=== PATIENT | male | born 1985 | race Caucasian/White ===

== ENCOUNTER 2017-07-06 10:36 | Inpatient (IN) | payer SELFPAY ==
[2017-07-06] VITALS (7 sets, daily range): BP systolic 103–135; BP diastolic 59–79; PULSE 41–95; RESP 16–26; TEMP 97.8–98.5; O2SAT 96–100
[~2017-07-06] VITALS: Ht 182.9 cm; Wt 96.8 kg
[2017-07-06] MEDS ORDERED: CEFEPIME INJ 2,000 MG in SODIUM CHLORIDE 0.9% INJ 100 ML IV STA (11:22)
[2017-07-06] MEDS ORDERED: VANCOMYCIN INJ 1,000 MG in SODIUM CHLOR 0.9% 250 ML INJ 250 ML IV STA (11:22)
--- NOTE | 2017-07-06 11:45 | PD ---
HPI Chief Complaint: Fever Time Seen by Provider: 11:43 Travel History International Travel<30 days: No Contact w/Intl Traveler<30days: No Traveled to known affect area: No History of Present Illness HPI 32-year-old male patient with history of IV drug use, endocarditis, presents to the ER today because he states that for the past 34 days he has been having fevers of up to 103, fatigue, and body aches. He denies any chest pains or shortness of breath, he denies any abdominal pains. He states that he is still using IV drugs and has been constipated for 5 days but has had no nausea, vomiting, or other issues. Modifying Factors: None Associated Signs & Symptoms: Fatigue, body aches, fevers Risk Factors: IV drug use and endocarditis history PFSH Past Medical History Medical History: Denies Significant Hx Cardiovascular Problems: Yes (HX of endocarditis) Diminished Hearing: No Tetanus Vaccination: < 5 Years Influenza Vaccination: No Past Surgical History Surgical History: No Previous Surgery Social History Alcohol Use: No Tobacco Use: Yes (1/2 ppd) Substance Use: Yes (heroin ) Allergies-Medications (Allergen,Severity, Reaction): Coded Allergies: penicillin G (Verified Allergy, Severe, 07/06/17) allergy codeine (Verified Allergy, Unknown, 07/06/17) Reported Meds & Prescriptions Reported Meds & Active Scripts Active No Active Prescriptions or Reported Medications Review of Systems Except as stated in HPI: all other systems reviewed are Neg Physical Exam Narrative GENERAL: Well-developed young white male patient currently in mild distress. Awake and oriented 3. SKIN: Focused skin assessment warm/dry. HEAD: Atraumatic. Normocephalic. EYES: Pupils equal and round. No scleral icterus. No injection or drainage. ENT: No nasal bleeding or discharge. Mucous membranes pink and moist. NECK: Trachea midline. No JVD. Supple. CARDIOVASCULAR: Regular rate and rhythm. No murmur appreciated. RESPIRATORY: No accessory muscle use. Clear to auscultation. Breath sounds equal bilaterally. GASTROINTESTINAL: Abdomen soft, non-tender, nondistended. Hepatic and splenic margins not palpable. MUSCULOSKELETAL: No obvious deformities. No clubbing. No cyanosis. No edema. NEUROLOGICAL: Awake and alert. No obvious cranial nerve deficits. Motor grossly within normal limits. Normal speech. PSYCHIATRIC: Appropriate mood and affect; insight and judgment normal. Data Data Last Documented VS Vital Signs Date Time Temp Pulse Resp B/P (MAP) Pulse Ox O2 Delivery O2 Flow Rate FiO2 07/06/17 12:01 98 Room Air 07/06/17 12:01 07/06/17 11:45 98.5 89 18 Orders Orders Complete Blood Count With Diff (07/06/17 11:22) Comprehensive Metabolic Panel (07/06/17 11:22) Lactic Acid Sepsis Protocol (07/06/17 11:22) Urinalysis - C+S If Indicated (07/06/17 11:22) Blood Culture (07/06/17 11:22) Chest, Single Ap (07/06/17 11:22) Blood Glucose (07/06/17 11:22) Ecg Monitoring (07/06/17 11:22) Iv Access Insert/Monitor (07/06/17 11:22) Oximetry (07/06/17 11:22) Oxygen Administration (07/06/17 11:22) Vancomycin Inj (Vancomycin Inj) (07/06/17 11:22) Cefepime Inj (Maxipime Inj) (07/06/17 11:22) Sodium Chlor 0.9% 1000 Ml Inj (Ns 1000 M (07/06/17 13:00) Labs Laboratory Tests Test 07/06/17 11:45 07/06/17 12:40 07/06/17 12:41 White Blood Count 13.8 TH/MM3 Red Blood Count 4.37 MIL/MM3 Hemoglobin 12.8 GM/DL Hematocrit 39.5 % Mean Corpuscular Volume 90.4 FL Mean Corpuscular Hemoglobin 29.2 PG Mean Corpuscular Hemoglobin Concent 32.3 % Red Cell Distribution Width 13.5 % Platelet Count 311 TH/MM3 Mean Platelet Volume 7.7 FL Neutrophils (%) (Auto) 86.2 % Lymphocytes (%) (Auto) 5.4 % Monocytes (%) (Auto) 5.6 % Eosinophils (%) (Auto) 0.0 % Basophils (%) (Auto) 2.8 % Neutrophils # (Auto) 11.9 TH/MM3 Lymphocytes # (Auto) 0.7 TH/MM3 Monocytes # (Auto) 0.8 TH/MM3 Eosinophils # (Auto) 0.0 TH/MM3 Basophils # (Auto) 0.4 TH/MM3 CBC Comment AUTO DIFF Differential Comment AUTO DIFF CONFIRMED Urine Collection Type CATH Urine Color YELLOW Urine Turbidity CLEAR Urine pH 7.5 Urine Specific [place] 1.014 Urine Protein NEG mg/dL Urine Glucose (UA) NEG mg/dL Urine Ketones NEG mg/dL Urine Occult Blood NEG Urine Nitrite NEG Urine Bilirubin NEG Urine Leukocyte Esterase NEG Urine Squamous Epithelial Cells 0-5 /hpf Microscopic Urinalysis Comment CULT NOT INDICATED Blood Urea Nitrogen 9 MG/DL Creatinine 1.20 MG/DL Random Glucose 105 MG/DL Total Protein 6.4 GM/DL Albumin 2.3 GM/DL Calcium Level 8.2 MG/DL Alkaline Phosphatase 99 U/L Aspartate Amino Transf (AST/SGOT) 17 U/L Alanine Aminotransferase (ALT/SGPT) 29 U/L Total Bilirubin 0.9 MG/DL Sodium Level 136 MEQ/L Potassium Level 3.7 MEQ/L Chloride Level 103 MEQ/L Carbon Dioxide Level 26.3 MEQ/L Anion Gap 7 MEQ/L Estimat Glomerular Filtration Rate 70 ML/MIN Lactic Acid Level 0.9 mmol/L MDM Medical Decision Making Medical Screen Exam Complete: Yes Emergency Medical Condition: Yes Medical Record Reviewed: Yes Interpretation(s) Laboratory Tests Test 07/06/17 11:45 07/06/17 12:40 07/06/17 12:41 White Blood Count 13.8 TH/MM3 (4.0-11.0) Red Blood Count 4.37 MIL/MM3 (4.50-5.90) Hemoglobin 12.8 GM/DL (13.0-17.0) Neutrophils (%) (Auto) 86.2 % (16.0-70.0) Lymphocytes (%) (Auto) 5.4 % (9.0-44.0) Basophils (%) (Auto) 2.8 % (0.0-2.0) Neutrophils # (Auto) 11.9 TH/MM3 (1.8-7.7) Lymphocytes # (Auto) 0.7 TH/MM3 (1.0-4.8) Basophils # (Auto) 0.4 TH/MM3 (0-0.2) Albumin 2.3 GM/DL (3.4-5.0) Calcium Level 8.2 MG/DL (8.5-10.1) Estimat Glomerular Filtration Rate 70 ML/MIN (>89) Differential Diagnosis Fevers, fatigue: Endocarditis versus sepsis versus pneumonia versus viral syndrome Narrative Course Chest x-ray did not show any obvious pneumonia. Lab work shows leukocytosis concerning for possible underlying endocarditis. IV antibiotics were initiated after cultures were drawn. No other source was identified. Patient is a current IV drug user. At this point, my plan would be to admit the patient for further treatment. Case is discussed with Dr. Kuhn for admission. Diagnosis Primary Impression: Fever Additional Impression: Endocarditis Admitting Information Admitting Physician Requests: Admit Scripts No Active Prescriptions or Reported Meds Rhys Moncada MD Jul 06, 2017 11:45
--- NOTE | 2017-07-06 11:54 | RADRPT ---
EXAM DATE/TIME: 07/06/2017 11:29 [facility] COMPARISON: CHEST SINGLE AP, October 08, 2016, 16:58. INDICATIONS : Fever and body aches x 8 days. MEDICAL HISTORY : None. SURGICAL HISTORY : None. ENCOUNTER: Initial ACUITY: 1 week PAIN SCORE: 6/10 LOCATION: chest FINDINGS: A single view of the chest demonstrates the lungs to be symmetrically aerated without evidence of mas s, infiltrate or effusion. The cardiomediastinal contours are unremarkable. Osseous structures are intact. CONCLUSION: No acute cardiopulmonary process. Juventino Morales MD on July 06, 2017 at 11:49 Board Certified Radiologist. This report was verified electronically.
[2017-07-06 12:09] LABS: BLOOD, URINE NEG (NEG); GLUCOSE,URINE NEG (NEG); KETONE, URINE NEG (NEG); NITRITE,URINE NEG (NEG); PH, URINE 7.5 (5.0-8.5)
[2017-07-06 12:10] LABS: METHOD OF COLLECTION CATH; URINE COLOR YELLOW (YELLW/STRAW)
[2017-07-06 12:11] LABS: AUTOMATED NEUTROPHIL # 11.9 TH/MM3 (1.8-7.7); BASOPHIL # 0.4 TH/MM3 (0-0.2); BASOPHIL % 2.8 % (0.0-2.0); HEMATOCRIT 39.5 % (39.0-51.0); LYMPH % 5.4 % (9.0-44.0); LYMPHOCYTE # 0.7 TH/MM3 (1.0-4.8); MEAN CELL VOLUME 90.4 FL (80.0-100.0); MEAN CORPUSCULAR HEMOGLOBIN 29.2 PG (27.0-34.0); MEAN CORPUSCULAR HGB CONC 32.3 % (32.0-36.0); MONO % 5.6 % (0.0-8.0); NEUT % 86.2 % (16.0-70.0); PLATELET COUNT 311 TH/MM3 (150-450); RED BLOOD COUNT 4.37 MIL/MM3 (4.50-5.90); RED CELL DISTRIBUTION WIDTH 13.5 % (11.6-17.2); WHITE BLOOD COUNT 13.8 TH/MM3 (4.0-11.0)
[2017-07-06 12:12] LABS: HEMO FLAGS AUTO DIFF
[2017-07-06 12:14] LABS: COMMENT (UR) CULT NOT INDICATED; CULTURE IF INDICATED CULT NOT INDICATED; SQUAMOUS EPITHELIAL CELL URINE 0-5 /hpf (0-5)
[2017-07-06 12:33] LABS: SCAN/DIFF AUTO DIFF CONFIRMED
[2017-07-06 12:54] LABS: CHLORIDE 103 MEQ/L (98-107); POTASSIUM 3.7 MEQ/L (3.5-5.1); SODIUM (NA) 136 MEQ/L (136-145)
[2017-07-06 12:58] LABS: ANION GAP 7 MEQ/L (5-15); BICARBONATE 26.3 MEQ/L (21.0-32.0); BLOOD UREA NITROGEN 9 MG/DL (7-18)
[2017-07-06] MEDS ORDERED: SODIUM CHLOR 0.9% 1000 ML INJ 1,000 ML IV ONE (13:00)
[2017-07-06 13:01] LABS: ALT (GPT) 29 U/L (12-78); AST (GOT) 17 U/L (15-37); GLOMERULAR FILTRATION RATE 70 ML/MIN (>89)
[2017-07-06 13:02] LABS: TOTAL BILIRUBIN ADULT 0.9 MG/DL (0.2-1.0)
[2017-07-06 13:04] LABS: ALKALINE PHOSPHATASE 99 U/L (45-117)
[2017-07-06] MEDS ORDERED: SODIUM CHLORIDE 0.9% FLUSH 10 ML FLUSH IV FLUSH PRN (13:45)
[2017-07-06] MEDS ORDERED: MAGNESIUM HYDROXIDE SUSP 30 ML CUP PO PRN (13:45)
[2017-07-06] MEDS ORDERED: Vancomycin Consult Pharmacy 1 EA OTHER SCH (13:45)
[2017-07-06] MEDS ORDERED: ACETAMINOPHEN 325 MG TAB PO PRN (13:45)
[2017-07-06] MEDS ORDERED: LACTULOSE SYRUP 20 GM/30 ML CUP PO PRN (13:45)
[2017-07-06] MEDS ORDERED: NALOXONE HCL 0.4 MG/ML AMP IV PRN (13:45)
[2017-07-06] MEDS ORDERED: BISACODYL 10 MG SUPP RECTAL PRN (13:45)
[2017-07-06] MEDS ORDERED: SENNOSIDES 8.6 MG TAB PO PRN (13:45)
[2017-07-06] MEDS ORDERED: METHADONE HCL 10 MG TAB PO ONE ×2 (14:00→15:45)
--- NOTE | 2017-07-06 14:09 | HHI.HP ---
[facility] Primary Care Physician No Primary Care Physician Admission Diagnosis fevers/possible endocarditis Diagnoses: (1) IVDU (intravenous drug user) (2) Fever Travel History International Travel<30 Days: No Contact w/Intl Traveler <30 Da: No Traveled to Known Affected Are: No History of Present Illness This is a pleasant 32 year-old male with past medical history of IV drug abuse and endocarditis several years ago who presents to the ER complaining of nightly fevers for the past 7 days, chills, constipation. The patient states that he has been using IV heroin and last used 2 days ago and feels he is going into withdrawal. He presented to the ER for evaluation of the fevers. He states that his body feels "toxic." He was constipated for about 4 or 5 days but several days ago used to enemas. Yesterday he had liquid stools which he believes is related to the withdrawal. The patient also had several episodes of vomiting, without hematemesis. The patient denies vision changes, rash, chest pain, shortness of breath. He is requesting being given something for the withdrawal. 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 He states he was on pain medication for chronic low back pain until he failed a drug test 2 years ago for marijuana and since then he has been using heroin. He had an episode of endocarditis several years ago in [place] and states he was hospitalized for several months with IV antibiotics. He did not require valve replacement. In the emergency department he was afebrile with normal vital signs however he did have a mild leukocytosis. ER physician due to blood cultures and gave him 1 g of vancomycin and 2 g of cefepime. He has been requested to be observed to rule out endocarditis. Review of Systems Constitutional: COMPLAINS OF: Fever, Chills Eyes: DENIES: Blurred vision, Diplopia Ears, nose, mouth, throat: DENIES: Throat pain, Hoarseness Respiratory: DENIES: Cough, Shortness of breath Cardiovascular: DENIES: Chest pain, Palpitations Gastrointestinal: COMPLAINS OF: Constipation, Diarrhea, Vomiting, DENIES: Abdominal pain Genitourinary: DENIES: Hematuria, Dysuria Musculoskeletal: COMPLAINS OF: Muscle aches (the patient endorses muscle spasms in his lower back), Back pain Integumentary: DENIES: Nail changes, Pruritus, Rash Hematologic/lymphatic: DENIES: Lymphadenopathy Neurologic: DENIES: Abnormal gait, Headache, Localized weakness Psychiatric: DENIES: Anxiety, Confusion Past Family Social History Past Medical History Chronic low back pain History of endocarditis and IV drug abuse Past Surgical History None Allergies: Coded Allergies: penicillin G (Verified Allergy, Severe, 07/06/17) allergy codeine (Verified Allergy, Unknown, 07/06/17) Family History Reviewed and noncontributory Social History He smokes cigarettes and occasional marijuana. Injects IV heroin. Denies other illicit drug use. Physical Exam Vital Signs Vital Signs Date Time Temp Pulse Resp B/P (MAP) Pulse Ox O2 Delivery O2 Flow Rate FiO2 07/06/17 12:01 98 Room Air 07/06/17 12:01 98 Room Air 07/06/17 11:51 99 Room Air 07/06/17 11:45 98.5 89 18 117/78 (91) 99 Room Air 07/06/17 10:43 98.5 95 16 120/70 (87) 96 Physical Exam GENERAL: Well-nourished, well-developed pleasant and polite young adult male patient. SKIN: Warm and dry. No rashes or infections noted. HEAD: Normocephalic. EYES: No scleral icterus. No injection or drainage. NECK: Supple, trachea midline. No JVD or lymphadenopathy. CARDIOVASCULAR: Regular rate and rhythm without murmurs, gallops, or rubs. RESPIRATORY: Breath sounds equal bilaterally. No accessory muscle use. GASTROINTESTINAL: Abdomen soft, non-tender, nondistended. EXTREMITIES: No cyanosis, or edema. He has an abrasion and small ecchymosis on the dorsum of his right hand. No splinter hemorrhages. NEUROLOGICAL: Awake, alert, and oriented x 3. Non-focal. Laboratory Laboratory Tests Test 07/06/17 11:45 07/06/17 12:40 07/06/17 12:41 White Blood Count 13.8 Red Blood Count 4.37 Hemoglobin 12.8 Hematocrit 39.5 Mean Corpuscular Volume 90.4 Mean Corpuscular Hemoglobin 29.2 Mean Corpuscular Hemoglobin Concent 32.3 Red Cell Distribution Width 13.5 Platelet Count 311 Mean Platelet Volume 7.7 Neutrophils (%) (Auto) 86.2 Lymphocytes (%) (Auto) 5.4 Monocytes (%) (Auto) 5.6 Eosinophils (%) (Auto) 0.0 Basophils (%) (Auto) 2.8 Neutrophils # (Auto) 11.9 Lymphocytes # (Auto) 0.7 Monocytes # (Auto) 0.8 Eosinophils # (Auto) 0.0 Basophils # (Auto) 0.4 CBC Comment AUTO DIFF Differential Comment AUTO DIFF CONFIRMED Urine Collection Type CATH Urine Color YELLOW Urine Turbidity CLEAR Urine pH 7.5 Urine Specific [place] 1.014 Urine Protein NEG Urine Glucose (UA) NEG Urine Ketones NEG Urine Occult Blood NEG Urine Nitrite NEG Urine Bilirubin NEG Urine Leukocyte Esterase NEG Urine Squamous Epithelial Cells 0-5 Microscopic Urinalysis Comment CULT NOT INDICATED Blood Urea Nitrogen 9 Creatinine 1.20 Random Glucose 105 Total Protein 6.4 Albumin 2.3 Calcium Level 8.2 Alkaline Phosphatase 99 Aspartate Amino Transf (AST/SGOT) 17 Alanine Aminotransferase (ALT/SGPT) 29 Total Bilirubin 0.9 Sodium Level 136 Potassium Level 3.7 Chloride Level 103 Carbon Dioxide Level 26.3 Anion Gap 7 Estimat Glomerular Filtration Rate 70 Lactic Acid Level 0.9 Date/Time Source Procedure Growth Status 07/06/17 12:15 Blood Peripheral Aerobic Blood Culture Pending Received 07/06/17 12:15 Blood Peripheral Anaerobic Blood Culture Pending Received Result Diagram: 07/06/17 1145 07/06/17 1240 Caprini VTE Risk Assessment Caprini VTE Risk Assessment: No/Low Risk (score <= 1) Caprini Risk Assessment Model Point Value = 1 Point Value = 2 Point Value = 3 Point Value = 5 Age 41-60 Minor surgery BMI > 25 kg/m2 Swollen legs Varicose veins or History of unexplained or recurrent spontaneous Oral contraceptives or hormone replacement Sepsis (< 1 month) Serious lung disease, including pneumonia (< 1 month) Abnormal pulmonary function Acute myocardial infarction Congestive heart failure (< 1 month) History of inflammatory bowel disease Medical patient at bed rest Age 61-74 Arthroscopic surgery Major open surgery (> 45 min) Laparoscopic surgery (> 45 min) Malignancy Confined to bed (> 72 hours) Immobilizing plaster cast Central venous access Age >= 75 History of VTE Family history of VTE Factor V Leiden Prothrombin [id number] Lupus anticoagulant Anticardiolipin antibodies Elevated serum homocysteine Heparin-induced thrombocytopenia Other congenital or acquired thrombophilia Stroke (< 1 month) Elective arthroplasty Hip, pelvis, or leg fracture Acute spinal cord injury (< 1 month) Prophylaxis Regimen Total Risk Factor Score Risk Level Prophylaxis Regimen 0-1 Low Early ambulation 2 Moderate Order ONE of the following: *Sequential Compression Device (SCD) *Heparin 5000 units SQ BID 3-4 Higher Order ONE of the following medications: *Heparin 5000 units SQ TID *Enoxaparin/Lovenox 40 mg SQ daily (WT < 150 kg, CrCl > 30 mL/min) *Enoxaparin/Lovenox 30 mg SQ daily (WT < 150 kg, CrCl > 10-29 mL/min) *Enoxaparin/Lovenox 30 mg SQ BID (WT < 150 kg, CrCl > 30 mL/min) AND/OR *Sequential Compression Device (SCD) 5 or more Highest Order ONE of the following medications: *Heparin 5000 units SQ TID (Preferred with Epidurals) *Enoxaparin/Lovenox 40 mg SQ daily (WT < 150 kg, CrCl > 30 mL/min) *Enoxaparin/Lovenox 30 mg SQ daily (WT < 150 kg, CrCl > 10-29 mL/min) *Enoxaparin/Lovenox 30 mg SQ BID (WT < 150 kg, CrCl > 30 mL/min) AND *Sequential Compression Device (SCD) Assessment and Plan Assessment and Plan 30 year-old male -Subjective fevers, leukocytosis reported in a patient with history of IV drug abuse. We'll place in observation with broad-spectrum IV antibiotics vancomycin and Azactam while we rule out endocarditis with blood cultures. -IV heroin abuse with withdrawal. Will give methadone 10 mg 1. -Chronic low back pain Will use Lortab 5 mg as needed for pain. -Constipation, resolved as per history but will place on bowel regimen. -DVT prophylaxis with SCDs Eden Kuhn MD Jul 06, 2017 14:09
[2017-07-06] MEDS: AZTREONAM INJ 2,000 MG in SODIUM CHLORIDE 0.9% INJ 100 ML IV SCH ×2 (16:49→23:33)
[2017-07-06] MEDS: SODIUM CHLOR 0.9% 1000 ML INJ 1,000 ML IV SCH ×2 (16:56→23:15)
[2017-07-06] MEDS: VANCOMYCIN INJ 1,400 MG in SODIUM CHLORID 0.9% 500 ML INJ 500 ML IV SCH (17:36)
[2017-07-06] MEDS: DOCUSATE SODIUM 50 MG/SENNA 8.6 MG TAB PO SCH (20:26)
[2017-07-06] MEDS: ACETAMINOPHEN/HYDROcodone 325 MG/5 MG TAB PO PRN (20:27)
[2017-07-06] MEDS: SODIUM CHLORIDE 0.9% FLUSH 10 ML FLUSH IV FLUSH SCH (20:48)
[2017-07-06] MEDS ORDERED: LORazepam 0.5 MG TAB PO ONE (22:45)
[2017-07-07] VITALS: BP 100/54; PULSE 109; RESP 18; TEMP 98.3; O2SAT 100
[2017-07-07] MEDS: ACETAMINOPHEN/HYDROcodone 325 MG/5 MG TAB PO PRN ×5 (05:58→23:55)
[2017-07-07] MEDS: VANCOMYCIN INJ 1,400 MG in SODIUM CHLORID 0.9% 500 ML INJ 500 ML IV SCH (05:58)
[2017-07-07 08:00] VITALS: BP 119/78; PULSE 88; RESP 16; TEMP 97.6; O2SAT 100
[2017-07-07] MEDS: DOCUSATE SODIUM 50 MG/SENNA 8.6 MG TAB PO SCH ×2 (09:00→20:56)
[2017-07-07] MEDS: SODIUM CHLORIDE 0.9% FLUSH 10 ML FLUSH IV FLUSH SCH ×2 (09:04→20:57)
[2017-07-07] MEDS: AZTREONAM INJ 2,000 MG in SODIUM CHLORIDE 0.9% INJ 100 ML IV SCH ×3 (09:12→23:55)
[2017-07-07] MEDS: SODIUM CHLOR 0.9% 1000 ML INJ 1,000 ML IV SCH ×2 (09:37→16:02)
[2017-07-07 12:00] VITALS: BP 117/70; PULSE 84; RESP 16; TEMP 97.8; O2SAT 100
[2017-07-07] MEDS: VANCOMYCIN INJ 1,250 MG in SODIUM CHLOR 0.9% 250 ML INJ 250 ML IV SCH ×2 (15:15→20:57)
[2017-07-07] MEDS: GABAPENTIN 300 MG CAP PO SCH ×2 (15:16→20:56)
[2017-07-07 18:00] VITALS: BP 109/67; PULSE 67; RESP 16; TEMP 96.7; O2SAT 100
[2017-07-07 20:00] VITALS: BP 130/75; PULSE 81; RESP 16; TEMP 97.6; O2SAT 100
[2017-07-07] MEDS: REMOVE OLD PATCH T-DERMAL SCH (20:57)
[2017-07-07] MEDS: NICOTINE 21 MG/24 HR PATCH T-DERMAL SCH (20:57)
--- NOTE | 2017-07-07 23:46 | HHI.PR ---
Subjective Remarks Patient seen this morning. Requesting increase in narcotic pain medication for chronic back pain. Denies any chest pain or shortness of breath. Patient reports past history of endocarditis.. He reports recent IV drug use. Objective Vital Signs Date Time Temp Pulse Resp B/P (MAP) Pulse Ox O2 Delivery O2 Flow Rate FiO2 07/07/17 20:00 97.6 81 16 130/75 (93) 100 07/07/17 18:00 96.7 67 16 109/67 (81) 100 07/07/17 15:35 16 07/07/17 12:00 97.8 84 16 117/70 (86) 100 07/07/17 08:00 97.6 88 16 119/78 (92) 100 07/07/17 00:00 98.3 109 18 100/54 (69) 100 I/O 07/07/17 07/07/17 07/07/17 07/08/17 07/08/17 07/08/17 07:00 15:00 23:00 07:00 15:00 23:00 Intake Total 938 ml 590 ml 1060 ml Output Total 400 ml Balance 938 ml 190 ml 1060 ml Intake Oral 240 ml 360 ml IV Total 938 ml 350 ml 700 ml Output Urine Total 400 ml # Voids 1 2 Result Diagram: 07/06/17 1145 07/07/17 0622 Objective Remarks GENERAL: patient sleeping, wakes up for exam. Appears comfortable. SKIN: Warm and dry. HEAD: Normocephalic. EYES: No scleral icterus. No injection or drainage. NECK: Supple, trachea midline. No JVD or lymphadenopathy. CARDIOVASCULAR: Regular rate and rhythm without murmurs, gallops, or rubs. RESPIRATORY: Breath sounds equal bilaterally. No accessory muscle use. GASTROINTESTINAL: Abdomen soft, non-tender, nondistended. MUSCULOSKELETAL: No cyanosis, or edema. BACK: Nontender without obvious deformity. No CVA tenderness. A/P Assessment and Plan ===07/07/17 //Suspected endocarditis. Order echocardiogram. Consult infectious disease for endocarditis. MRSA on [facility] labs. Repeat cultures. Continue vancomycin pending sensitivities. //MRSA endocarditis -Intermittent tachycardia, leukocytosis. Lactic acid 0.9. Subjective fevers at home. -Echocardiogram ordered. Consult infectious disease. Continue IV antibiotics. Follow-up infectious disease recommendations. //History of IV heroin abuse -No signs of acute withdrawal. Monitor. //Chronic low back pain. Continue Lortab 5 mg as needed for pain. //Constipation, resolved as per history. Continue on bowel regimen -DVT prophylaxis with SCDs Smith Salguero MD Jul 07, 2017 23:46
[2017-07-08] VITALS: BP 113/70; PULSE 83; RESP 16; TEMP 98.3; O2SAT 100
[2017-07-08] MEDS: SODIUM CHLOR 0.9% 1000 ML INJ 1,000 ML IV SCH ×2 (05:37→15:37)
[2017-07-08] MEDS: ACETAMINOPHEN/HYDROcodone 325 MG/5 MG TAB PO PRN ×3 (06:03→14:28)
[2017-07-08] MEDS: VANCOMYCIN INJ 1,250 MG in SODIUM CHLOR 0.9% 250 ML INJ 250 ML IV SCH ×2 (06:03→14:25)
[2017-07-08 08:00] VITALS: BP 112/73; PULSE 81; RESP 20; TEMP 97; O2SAT 95
--- NOTE | 2017-07-08 08:25 | PD.CONS ---
History of Present Illness Service Infectious Disease Consult Requested By Dr Racheal Kuhn Reason for Consult ? Endocarditis Primary Care Physician No Primary Care Physician Diagnoses: (1) MRSA (methicillin resistant Staphylococcus aureus) septicemia (2) IVDU (intravenous drug user) History of Present Illness 32 year old male patient with a h/o Endocarditis 2 years ago and a h/o IVDU - last use 2 days prior to admission came in with c/o fevers , weakness for about a week. Patient had leucocytosis and was admitted - Blood cultures 4 of 4 growing MRSA. Patient says he feels better today and wants to be discharged as he has to get to work. Denies shortness of breath and chest pain. C/o chronic back problems Echo is pending.. Review of Systems Constitutional: COMPLAINS OF: Fever, Chills Endocrine: DENIES: Polydipsia, Polyuria Eyes: DENIES: Blurred vision, Diplopia, Eye inflammation Ears, nose, mouth, throat: DENIES: Vertigo Respiratory: DENIES: Cough, Wheezing, Sputum production Cardiovascular: DENIES: Chest pain, Lower Extremity Edema Gastrointestinal: COMPLAINS OF: Diarrhea, DENIES: Abdominal pain, Vomiting Genitourinary: DENIES: Urinary incontinence, Dysuria Musculoskeletal: COMPLAINS OF: Back pain, DENIES: Joint Swelling Integumentary: DENIES: Abnormal pigmentation, Pruritus Hematologic/lymphatic: DENIES: Lymphadenopathy Neurologic: DENIES: Headache, Seizures Psychiatric: DENIES: Confusion, Hallucinations Past Family Social History Allergies: Coded Allergies: penicillin G (Verified Allergy, Severe, 07/06/17) allergy codeine (Verified Allergy, Unknown, 07/06/17) Past Medical History Endocarditis two years ago H/i IVDU Chronic back problems. Past Surgical History None Allergies: Coded Allergies: penicillin G (Verified Allergy, Severe, 07/06/17) allergy codeine (Verified Allergy, Unknown, 07/06/17) Family History Reviewed and noncontributory Social History He smokes cigarettes and occasional marijuana. Injects IV heroin. Denies other illicit drug use. Physical Exam Vital Signs Vital Signs Date Time Temp Pulse Resp B/P (MAP) Pulse Ox O2 Delivery O2 Flow Rate FiO2 07/08/17 00:00 98.3 83 16 113/70 (84) 100 07/07/17 20:00 97.6 81 16 130/75 (93) 100 07/07/17 18:00 96.7 67 16 109/67 (81) 100 07/07/17 15:35 16 07/07/17 12:00 97.8 84 16 117/70 (86) 100 Physical Exam GENERAL: This is a well-nourished, well-developed patient, in no apparent distress. SKIN: No rashes, ecchymoses or lesions. Cool and dry. HEAD: Atraumatic. Normocephalic. No temporal or scalp tenderness. EYES: Pupils equal round and reactive. Extraocular motions intact. No scleral icterus. No injection or drainage. ENT: Nose without bleeding, purulent drainage or septal hematoma. Throat without erythema, tonsillar hypertrophy or exudate. Uvula midline. Airway patent. NECK: Trachea midline. No JVD or lymphadenopathy. Supple, nontender, no meningeal signs. CARDIOVASCULAR: Regular rate and rhythm with a systolic murmurs, gallops, or rubs. RESPIRATORY: Clear to auscultation. Breath sounds equal bilaterally. No wheezes , rales, or rhonchi. GASTROINTESTINAL: Abdomen soft, non-tender, nondistended. No hepato-splenomegaly , or palpable masses. No guarding. MUSCULOSKELETAL: Extremities without clubbing, cyanosis, or edema. No joint tenderness, effusion, or edema noted. No calf tenderness. Negative Homans sign bilaterally. NEUROLOGICAL: Awake and alert. Cranial nerves II through XII intact. Motor and sensory grossly within normal limits. Five out of 5 muscle strength in all muscle groups. Normal speech. Laboratory Date/Time Source Procedure Growth Status 07/07/17 11:30 Blood Peripheral Aerobic Blood Culture Pending Received 07/07/17 11:30 Blood Peripheral Anaerobic Blood Culture Pending Received Result Diagram: 07/06/17 1145 07/07/17 0622 Assessment and Plan Problem List: (1) MRSA (methicillin resistant Staphylococcus aureus) septicemia ICD Codes: A41.02 - Sepsis due to Methicillin resistant Staphylococcus aureus Status: Acute Plan: Follow blood cultures Check Echocardiogram If Echo negative - he will need a ALFREDO Patient advised that his plan of treatment cannot be determined right now- it depends on clearing of bacteremia and if Echo/ ALFREDO shows a vegetation. He was advised he cannot be discharged today. Continue IV Vancomycin- pharmacy to dose Stop IV Aztreonam (2) IVDU (intravenous drug user) ICD Codes: F19.90 - Other psychoactive substance use, unspecified, uncomplicated Status: Chronic Rebeca Harden MD Jul 08, 2017 08:25
[2017-07-08] MEDS ORDERED: NICOTINE 21 MG/24 HR PATCH T-DERMAL SCH (09:00)
[2017-07-08] MEDS ORDERED: REMOVE OLD PATCH T-DERMAL SCH ×2 (09:00→21:00)
[2017-07-08] MEDS: DOCUSATE SODIUM 50 MG/SENNA 8.6 MG TAB PO SCH (09:09)
[2017-07-08] MEDS: GABAPENTIN 300 MG CAP PO SCH (09:09)
[2017-07-08] MEDS: REMOVE OLD PATCH T-DERMAL SCH (09:10)
[2017-07-08] MEDS: NICOTINE 21 MG/24 HR PATCH T-DERMAL SCH (09:10)
[2017-07-08] MEDS: SODIUM CHLORIDE 0.9% FLUSH 10 ML FLUSH IV FLUSH SCH (09:12)
[2017-07-08 09:53] LABS: AUTOMATED NEUTROPHIL # 5.7 TH/MM3 (1.8-7.7); BASOPHIL % 0.4 % (0.0-2.0); EOSINOPHIL # 0.1 TH/MM3 (0-0.4); EOSINOPHIL % 0.8 % (0.0-4.0); HEMATOCRIT 36.3 % (39.0-51.0); HEMO FLAGS DIFF FINAL; LYMPH % 13.1 % (9.0-44.0); LYMPHOCYTE # 0.9 TH/MM3 (1.0-4.8); MEAN CELL VOLUME 89.4 FL (80.0-100.0); MEAN CORPUSCULAR HEMOGLOBIN 29.6 PG (27.0-34.0); MEAN CORPUSCULAR HGB CONC 33.1 % (32.0-36.0); NEUT % 78.7 % (16.0-70.0); PLATELET COUNT 257 TH/MM3 (150-450); RED BLOOD COUNT 4.06 MIL/MM3 (4.50-5.90); RED CELL DISTRIBUTION WIDTH 11.9 % (11.6-17.2); WHITE BLOOD COUNT 7.2 TH/MM3 (4.0-11.0)
[2017-07-08 10:42] LABS: BICARBONATE 25.3 MEQ/L (21.0-32.0); POTASSIUM 4.7 MEQ/L (3.5-5.1)
[2017-07-08 12:00] VITALS: BP 129/77; PULSE 80; RESP 19; O2SAT 100
--- NOTE | 2017-07-08 12:46 | ECHRPT ---
Indication: Rheumatic diseases of endocardium, valve unspecified CONCLUSIONS Normal left ventricular size. Mild concentric left ventricular hypertrophy. Findings consistent with vegetation on the anterior leaflet of the tricuspid valve versus sclerosis due to rheumatic disease. clinical correlation recommended. There is severe tricuspid regurgitation. The estimated pulmonary arterial pressure is 46 mmHg. The pulmonary valve is not well visualized. Consider transesophageal echocardiogram. BP: 113 / 70 HR: 80 Rhythm: Sinus MEASUREMENTS (Male / Female) Normal Values Technical Quality:Good DOPPLER TR Peak Velocity 301.0 cm/s TR Peak Gradient 36.2 mmHg FINDINGS LEFT VENTRICLE Normal left ventricular size. Mild concentric left ventricular hypertrophy. The left ventricular systolic function is normal with an estimated ejection fraction in the range of 60-65%. RIGHT VENTRICLE Normal right ventricular size and systolic function. LEFT ATRIUM The left atrial size is normal. RIGHT ATRIUM The right atrial size is normal. ATRIAL SEPTUM Normal atrial septal thickness without atrial level shunting by limited color doppler interrogation. AORTA The aortic root and proximal ascending aorta are normal in size on limited imaging. MITRAL VALVE Structurally normal mitral valve. No mitral valve stenosis or regurgitation. AORTIC VALVE Trileaflet aortic valve. No aortic valve stenosis or regurgitation. TRICUSPID VALVE Findings consistent with vegetation on the anterior leaflet of the tricuspid valve. There is severe tricuspid regurgitation. The estimated pulmonary arterial pressure is 46 mmHg. PULMONARY VALVE The pulmonary valve is not well visualized. VESSELS The inferior vena cava is normal in size. PERICARDIUM No pericardial effusion. Carlos Huitron MD, FACC (Electronically Signed) Final Date:08 July 2017 12:45
[2017-07-08] MEDS ORDERED: PHARMACY ORDERED LAB ONE (13:45)
[2017-07-08 16:00] VITALS: BP 123/88; PULSE 87; RESP 18; TEMP 97.2; O2SAT 100
--- NOTE | 2017-07-08 18:52 | HHI.PR ---
Subjective Remarks Patient seen this morning around 11 AM. Sleeping, wakes up for exam. Requests increase in pain medication. Again, discussed with patient that endocarditis is potentially life-threatening. Patient conveys understanding. Objective Vital Signs Date Time Temp Pulse Resp B/P (MAP) Pulse Ox O2 Delivery O2 Flow Rate FiO2 07/08/17 16:00 97.2 87 18 123/88 (100) 100 07/08/17 12:00 80 19 129/77 (94) 100 07/08/17 08:00 97.0 81 20 112/73 (86) 95 07/08/17 00:00 98.3 83 16 113/70 (84) 100 07/07/17 20:00 97.6 81 16 130/75 (93) 100 I/O 07/07/17 07/07/17 07/07/17 07/08/17 07/08/17 07/08/17 07:00 15:00 23:00 07:00 15:00 23:00 Intake Total 938 ml 590 ml 1060 ml 480 ml 1560 ml Output Total 400 ml 1000 ml Balance 938 ml 190 ml 1060 ml -520 ml 1560 ml Intake Oral 240 ml 360 ml 480 ml 960 ml IV Total 938 ml 350 ml 700 ml 600 ml Output Urine Total 400 ml 1000 ml # Voids 1 2 4 # Bowel Movements 0 Result Diagram: 07/08/1792907/08/1730 Objective Remarks GENERAL: patient sleeping again, wakes up for exam. Appears comfortable.patient appears alert. SKIN: Warm and dry. HEAD: Normocephalic. EYES: No scleral icterus. No injection or drainage. NECK: Supple, trachea midline. No JVD. CARDIOVASCULAR: Regular rate and rhythm without murmurs, gallops, or rubs. RESPIRATORY: Breath sounds equal bilaterally. No accessory muscle use. GASTROINTESTINAL: Abdomen soft, non-tender, nondistended. MUSCULOSKELETAL: No cyanosis, or edema. BACK: Nontender without obvious deformity. No CVA tenderness. A/P Assessment and Plan ====07/08/17 -Echocardiogram reviewed with severe tricuspid regurgitation, vegetation. Continue IV antibiotics. Appreciate infectious disease assistance. //MRSA endocarditis -Intermittent tachycardia, leukocytosis. Lactic acid 0.9. Subjective fevers at home. -Echocardiogram ordered. Consult infectious disease. Continue IV antibiotics. Follow-up infectious disease recommendations. //History of IV heroin abuse -No signs of acute withdrawal. Monitor. //Chronic low back pain. Continue Lortab 5 mg as needed for pain. //Constipation, resolved as per history. Continue on bowel regimen -DVT prophylaxis with SCDs Discharge Planning plan to continue IV antibiotics as per infectious disease. Smith Salguero MD Jul 08, 2017 18:52
== END 2017-07-08 18:26 | disposition left against medical advice (07) | DRG 871 ==
LOC: PHED 10:36 → INTOOBSV 13:17 → PHEDA 13:17 → PH3A 15:20 → OBSVTOIN 07-07 17:13
PROVIDERS: ADMIT Internal Medicine; ATTEND Internal Medicine
DX: A41.02 Sepsis due to Methicillin resistant Staphylococcus aureus (principal); I33.0 Acute and subacute infective endocarditis; F17.210 Nicotine dependence, cigarettes, uncomplicated; G89.29 Other chronic pain; F11.10 Opioid abuse, uncomplicated; M54.5 Low back pain; B95.62 Methicillin resistant Staphylococcus aureus infection as the cause of diseases classified elsewhere
CPT/HCPCS: 71010; 80048; 80053; 80202; 81001; 82565; 83605; 85025; 86403; 87040; 87186; 87205; 93308; 96365; 96366; G0378; J0692; J3370; J7030; J7040; J7050

== ENCOUNTER 2017-07-31 08:23 | Inpatient (IN) | payer SELFPAY ==
[2017-07-31] VITALS (18 sets, daily range): BP systolic 82–132; BP diastolic 54–77; PULSE 86–133; RESP 16–20; TEMP 95.5–100.9; O2SAT 95–99
[~2017-07-31] VITALS: Ht 182.9 cm; Wt 85.3 kg
[2017-07-31] MEDS ORDERED: SODIUM CHLOR 0.9% 1000 ML INJ 700 ML IV ONE (08:34)
[2017-07-31] MEDS ORDERED: SODIUM CHLOR 0.9% 1000 ML INJ 1,000 ML IV ONE ×2 (08:34)
[2017-07-31] MEDS ORDERED: ONDANSETRON HCL 4 MG/2 ML VIAL IV ONE (08:45)
[2017-07-31] MEDS ORDERED: CLINDAMYCIN INJ 600 MG in SODIUM CHLORIDE 0.9% INJ 100 ML IV ONE (08:45)
[2017-07-31] MEDS ORDERED: HYDROmorphone HCL PF 1 MG/ML VIAL IV ONE (08:45)
[2017-07-31] MEDS ORDERED: VANCOMYCIN INJ 1,500 MG in SODIUM CHLORID 0.9% 500 ML INJ 500 ML IV ONE (08:45)
[2017-07-31] MEDS ORDERED: ACETAMINOPHEN 325 MG TAB PO ONE (08:45)
--- NOTE | 2017-07-31 08:53 | PD ---
HPI Chief Complaint: Fever Time Seen by Provider: 08:29 Travel History International Travel<30 days: No Contact w/Intl Traveler<30days: No Traveled to known affect area: No History of Present Illness HPI The patient is a 32-year-old male who presents to the emergency department for fever. The patient has a history of IVDA and was diagnosed with endocarditis in June 2017. The patient states he signed out AGAINST MEDICAL ADVICE at that time, has been feeling better, however, over the last week has had increasing fatigue. He now complains of fever, headache, and generalized lethargy. The patient states he last used IV Dilaudid 2 days ago. The patient has been using Dilaudid in the morning and evening, is not currently on methadone. 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 He denies any acute chest pain, shortness breath, nausea, vomiting, or abdominal pain. He does complain of fevers, chills, and sweats. He does not currently have a primary physician. He is allergic to codeine and penicillin G. PFSH Past Medical History Autoimmune Disease: No Cancer: No Cardiovascular Problems: Yes (HX of endocarditis) Diminished Hearing: No Endocrine: No Genitourinary: No Immune Disorder: No Musculoskeletal: Yes Neurologic: No Psychiatric: No Reproductive: No Respiratory: No Thyroid Disease: No Past Surgical History Surgical History: No Previous Surgery Social History Alcohol Use: No Tobacco Use: Yes (/2 ppd) Substance Use: Yes (heroin ) Allergies-Medications (Allergen,Severity, Reaction): Coded Allergies: penicillin G (Verified Allergy, Severe, 07/31/17) allergy codeine (Verified Allergy, Unknown, 07/31/17) Reported Meds & Prescriptions Reported Meds & Active Scripts Active No Active Prescriptions or Reported Medications Review of Systems Except as stated in HPI: all other systems reviewed are Neg General / Constitutional: Positive: Fever, Chills Cardiovascular: No: Chest Pain or Discomfort Respiratory: No: Shortness of Breath Gastrointestinal: No: Nausea, Vomiting, Abdominal Pain Genitourinary: No: Dysuria Musculoskeletal: Positive: Weakness Neurologic: Positive: Weakness Psychiatric: Positive: Substance Abuse (IVDA) Physical Exam Narrative GENERAL: Awake, alert, pleasant 32-year-old male who appears his stated age, appears slightly diaphoretic. SKIN: Focused skin assessment warm, slightly diaphoretic. HEAD: Atraumatic. Normocephalic. EYES: Pupils equal and round. No scleral icterus. No injection or drainage. ENT: No nasal bleeding or discharge. Dry mucous members. NECK: Trachea midline. No JVD. CARDIOVASCULAR: Regular, tachycardic with a heart rate in the 120s. Systolic murmur noted. RESPIRATORY: No accessory muscle use. Clear to auscultation. Breath sounds equal bilaterally. GASTROINTESTINAL: Abdomen soft, non-tender, nondistended. MUSCULOSKELETAL: No obvious deformities. No clubbing. No cyanosis. No edema. Track blackwell noted in the left anterior cubital fossa. NEUROLOGICAL: Awake and alert. No obvious cranial nerve deficits. Motor grossly within normal limits. Normal speech. Nonfocal. PSYCHIATRIC: Appropriate mood and affect; insight and judgment normal. Data Data Last Documented VS Vital Signs Date Time Temp Pulse Resp B/P (MAP) Pulse Ox O2 Delivery O2 Flow Rate FiO2 07/31/17 08:40 119 16 96 Room Air 07/31/17 08:38 100.9 100/77 (85) Orders Orders Electrocardiogram (07/31/17 08:34) Complete Blood Count With Diff (07/31/17 08:34) Comprehensive Metabolic Panel (07/31/17 08:34) Lactic Acid Sepsis Protocol (07/31/17 08:34) Urinalysis - C+S If Indicated (07/31/17 08:34) Blood Culture (07/31/17 08:34) Chest, Single Ap (07/31/17 08:34) Blood Glucose (07/31/17 08:34) Ecg Monitoring (07/31/17 08:34) Iv Access Insert/Monitor (07/31/17 08:34) Oximetry (07/31/17 08:34) Oxygen Administration (07/31/17 08:34) Acetaminophen (Tylenol) (07/31/17 08:45) Hydromorphone Pf Inj (Dilaudid Pf Inj) (07/31/17 08:45) Ondansetron Inj (Zofran Inj) (07/31/17 08:45) Sodium Chlor 0.9% 1000 Ml Inj (Ns 1000 M (07/31/17 08:34) Sodium Chlor 0.9% 1000 Ml Inj (Ns 1000 M (07/31/17 08:34) Sodium Chlor 0.9% 1000 Ml Inj (Ns 1000 M (07/31/17 08:34) Clindamycin Inj (Cleocin Inj) (07/31/17 08:45) Admit Order (Ed Use Only) (07/31/17 08:40) [facility] Medical Decision Making Medical Screen Exam Complete: Yes Emergency Medical Condition: Yes Medical Record Reviewed: Yes Interpretation(s) EKG reveals sinus tachycardia with a heart rate of 121. Chest x-ray reveals minimal density at the bases likely related to minimal atelectasis or consolidation. Last Impressions Chest X-Ray 07/31/17833 Signed Impressions: Service Date/Time: Wednesday, July 31, 2017 08:50 - CONCLUSION: Minimal density at the bases likely related to minimal atelectasis or consolidation. Kenny Zambrano MD The patient's lab work reveals a CBC with a white count 18.9, lactic acid 1.6, UA reveals ketones, CMP essentially unremarkable. Differential Diagnosis Differential diagnoses includes endocarditis, septic emboli, sepsis, IVDA, septicemia, bacteremia, noncompliance. Narrative Course IV was established, labs are drawn and sent, and the patient was placed on cardiac telemetry monitoring and continuous pulse oximetry monitoring. Blood cultures were obtained. Chest x-ray was obtained. 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 I reviewed the patient's previous hospitalization July 08, 2017, the patient had an echocardiogram that was positive for a tricuspid vegetation consistent with endocarditis and had 4 blood cultures positive for MRSA. The patient was seen by infectious disease at that time, Dr. Harden, who recommended vancomycin. However, the patient signed out AMA. The patient states if we treat his pain he will stay for treatment. I did advise the patient he will need 6-8 weeks of IV treatment most likely for his endocarditis, he would not be a candidate for PICC line placement and discharge home secondary to a history of IVDA. The patient states he is willing to stay in the hospital for treatment. I discussed the patient with the on-call medical team, Dr. Kuhn, who agrees with admission. Sepsis Criteria SIRS Criteria (2 or more): Heart rate over 90, WBC > 25412, < 4000 or > 10% bands Sepsis Criteria (SIRS+source): Infect source susp/known Criteria Outcome: Meets sepsis criteria Physician Communication Physician Communication I discussed the patient Dr. Kuhn who agrees with admission. Diagnosis Primary Impression: Endocarditis Qualified Codes: I33.0 - Acute and subacute infective endocarditis Additional Impressions: MRSA (methicillin resistant Staphylococcus aureus) septicemia Sepsis Qualified Codes: A41.9 - Sepsis, unspecified organism Admitting Information Admitting Physician Requests: Admit Scripts No Active Prescriptions or Reported Meds Condition: Stable Jacinto Trammell MD Jul 31, 2017 08:53
--- NOTE | 2017-07-31 09:05 | EKG ---
Date Performed: 07/31/2017 Time Performed: 08:43:05 PTAGE: 32 years EKG: SINUS TACHYCARDIA BORDERLINE RIGHT AXIS DEVIATION ABNORMAL RHYTHM ECG NO PREVIOUS TRACING DOCTOR: Immanuel Dobson Interpretating Date/Time 07/31/2017 09:03:20
--- NOTE | 2017-07-31 09:06 | RADRPT ---
EXAM DATE/TIME: 07/31/2017 08:50 [facility] COMPARISON: CHEST SINGLE AP, July 06, 2017, 11:29. INDICATIONS : Fever, headache, cough MEDICAL HISTORY : None. SURGICAL HISTORY : None. ENCOUNTER: Initial ACUITY: 4 - 6 days PAIN SCORE: 10/10 LOCATION: Bilateral chest FINDINGS: The heart size is normal. There is minimal increased density at the bases. The upper lungs are clear. No effusion is seen. CONCLUSION: Minimal density at the bases likely related to minimal atelectasis or consolidation. Kenny Zambrnao MD on July 31, 2017 at 9:04 Board Certified Radiologist. This report was verified electronically.
[2017-07-31 09:24] LABS: AUTOMATED NEUTROPHIL # 17.4 TH/MM3 (1.8-7.7); BASOPHIL # 0.4 TH/MM3 (0-0.2); BASOPHIL % 2.2 % (0.0-2.0); EOSINOPHIL % 0.1 % (0.0-4.0); LYMPH % 2.9 % (9.0-44.0); LYMPHOCYTE # 0.5 TH/MM3 (1.0-4.8); MEAN CELL VOLUME 84.6 FL (80.0-100.0); MEAN CORPUSCULAR HEMOGLOBIN 28.2 PG (27.0-34.0); MEAN CORPUSCULAR HGB CONC 33.3 % (32.0-36.0); MONO % 3.1 % (0.0-8.0); NEUT % 91.7 % (16.0-70.0); PLATELET COUNT 234 TH/MM3 (150-450); RED BLOOD COUNT 4.96 MIL/MM3 (4.50-5.90); RED CELL DISTRIBUTION WIDTH 12.8 % (11.6-17.2); WHITE BLOOD COUNT 18.9 TH/MM3 (4.0-11.0)
[2017-07-31 09:26] LABS: HEMO FLAGS DIFF FINAL
[2017-07-31 09:44] LABS: BLOOD, URINE MOD (NEG); GLUCOSE,URINE NEG (NEG); KETONE, URINE 15 mg/dL (NEG); NITRITE,URINE NEG (NEG)
[2017-07-31] MEDS ORDERED: BISACODYL 10 MG SUPP RECTAL PRN (09:45)
[2017-07-31] MEDS ORDERED: MAGNESIUM HYDROXIDE SUSP 30 ML CUP PO PRN (09:45)
[2017-07-31] MEDS ORDERED: ONDANSETRON HCL 4 MG/2 ML VIAL IVP PRN (09:45)
[2017-07-31] MEDS ORDERED: NALOXONE HCL 0.4 MG/ML AMP IV PUSH PRN (09:45)
[2017-07-31] MEDS ORDERED: LACTULOSE SYRUP 20 GM/30 ML CUP PO PRN (09:45)
[2017-07-31] MEDS ORDERED: SENNOSIDES 8.6 MG TAB PO PRN (09:45)
[2017-07-31 09:47] LABS: BLOOD UREA NITROGEN 12 MG/DL (7-18)
[2017-07-31 09:48] LABS: BICARBONATE 24.7 MEQ/L (21.0-32.0)
[2017-07-31 09:50] LABS: ALT (GPT) 19 U/L (12-78); AST (GOT) 13 U/L (15-37); GLOMERULAR FILTRATION RATE 86 ML/MIN (>89)
[2017-07-31 09:52] LABS: TOTAL BILIRUBIN ADULT 1.3 MG/DL (0.2-1.0)
[2017-07-31 09:53] LABS: ALKALINE PHOSPHATASE 102 U/L (45-117); ANION GAP 9 MEQ/L (5-15); CHLORIDE 98 MEQ/L (98-107); POTASSIUM 4.5 MEQ/L (3.5-5.1); SODIUM (NA) 132 MEQ/L (136-145)
[2017-07-31 09:56] LABS: METHOD OF COLLECTION CATH; URINE COLOR YELLOW (YELLW/STRAW)
[2017-07-31 09:57] LABS: COMMENT (UR) CULT NOT INDICATED; CULTURE IF INDICATED CULT NOT INDICATED; RBC, URINE 0-3 /hpf (0-3)
[2017-07-31] MEDS: AZTREONAM INJ 2,000 MG in SODIUM CHLORIDE 0.9% INJ 100 ML IV SCH ×2 (10:16→17:36)
[2017-07-31] MEDS: VANCOMYCIN INJ 1,000 MG in SODIUM CHLOR 0.9% 250 ML INJ 250 ML IV SCH ×2 (10:57→23:52)
[2017-07-31] MEDS: SODIUM CHLORIDE 0.9% FLUSH 10 ML FLUSH IV FLUSH PRN ×3 (10:57→12:38)
[2017-07-31] MEDS ORDERED: KETOROLAC TROMETHAMINE 30 MG/ML (IVP) VIAL IV PUSH ONE (11:15)
[2017-07-31] MEDS: SODIUM CHLOR 0.9% 1000 ML INJ 1,000 ML IV SCH ×2 (12:38→21:25)
--- NOTE | 2017-07-31 17:03 | HHI.HP ---
[facility] Service [facility] Primary Care Physician No Primary Care Physician Admission Diagnosis endocarditis, sepsis, IVDA Diagnoses: (1) MRSA (methicillin resistant Staphylococcus aureus) septicemia (2) Endocarditis (3) IVDU (intravenous drug user) Travel History International Travel<30 Days: No Contact w/Intl Traveler <30 Da: No Traveled to Known Affected Are: No History of Present Illness This is a 32 year-old male with past medical history of IV drug abuse and endocarditis who is known to me from previous hospitalization. The patient was hospitalized 3 weeks ago and at that time was diagnosed with MRSA endocarditis and bacteremia with 2-D echocardiogram showing a tricuspid valve vegetation. At that time he left AGAINST MEDICAL ADVICE after only 2 days in the hospital. The patient returns now with night sweats and fevers. He is complaining of a severe pulsating headache which is worse with cough. No visual changes. No weakness or paresthesias. The patient is also complaining of chronic low back pain. The patient is requesting that we "meet him usp" and give him opioids. Currently has blood pressures running quite low. He did receive clindamycin and has received a dose of vancomycin and Azactam as well as a 2 L fluid bolus. Lactic acid level 1.6. The patient admits to ongoing active IV drug use. Review of Systems ROS Limitations: Poor Historian Constitutional: DENIES: Fever, Chills Eyes: DENIES: Blurred vision, Diplopia Respiratory: COMPLAINS OF: Cough, DENIES: Shortness of breath Cardiovascular: DENIES: Chest pain, Palpitations Gastrointestinal: DENIES: Abdominal pain, Vomiting Genitourinary: DENIES: Hematuria, Dysuria Musculoskeletal: COMPLAINS OF: Back pain, DENIES: Joint Swelling Integumentary: DENIES: Pruritus, Rash Neurologic: COMPLAINS OF: Headache, DENIES: Abnormal gait, Localized weakness Psychiatric: DENIES: Anxiety, Confusion Past Family Social History Past Medical History IVDU Chronic low back pain Previous history of endocarditis several years ago Allergies: Coded Allergies: penicillin G (Verified Allergy, Severe, 07/31/17) allergy codeine (Verified Allergy, Unknown, 07/31/17) Family History Reviewed and noncontributory Social History As per HPI Physical Exam Vital Signs Vital Signs Date Time Temp Pulse Resp B/P (MAP) Pulse Ox O2 Delivery O2 Flow Rate FiO2 07/31/17 16:01 89 17 100/71 (81) 97 07/31/17 16:00 95.5 100 20 82/54 (63) 95 07/31/17 15:00 87 97 Room Air 07/31/17 14:00 86 16 100/62 (75) 97 Room Air 07/31/17 13:30 92 16 103/62 (76) 98 Nasal Cannula 2.00 07/31/17 13:00 86 16 99 Nasal Cannula 2.00 07/31/17 13:00 96 16 102/58 (73) 99 Nasal Cannula 2.00 07/31/17 12:30 106 16 110/67 (81) 98 Nasal Cannula 2.00 07/31/17 12:28 16 07/31/17 12:00 105 16 101/62 (75) 98 Nasal Cannula 2.00 07/31/17 11:58 102 16 98 Nasal Cannula 2.00 07/31/17 11:45 102 16 108/67 (81) 99 Nasal Cannula 2.00 07/31/17 11:21 100 16 98/62 (74) 99 Nasal Cannula 2.00 07/31/17 10:45 106 16 104/70 (81) 99 Nasal Cannula 2.00 07/31/17 10:42 105 16 99 Nasal Cannula 2.00 07/31/17 10:30 98.8 112 16 111/71 (84) 98 Nasal Cannula 2.00 07/31/17 10:11 119 16 105/70 (82) 99 Nasal Cannula 2.00 07/31/17 10:09 16 07/31/17 10:09 16 07/31/17 09:30 118 16 100/72 (81) 99 Nasal Cannula 2.00 07/31/17 08:45 16 99 Nasal Cannula 2.00 07/31/17 08:45 99 Nasal Cannula 2.00 07/31/17 08:40 119 16 96 Room Air 07/31/17 08:38 100.9 123 16 100/77 (85) 96 Room Air 07/31/17 08:24 100.2 133 18 132/66 (88) 97 Physical Exam GENERAL: Well-nourished, well-developed patient. SKIN: Warm and dry. HEAD: Normocephalic. EYES: No scleral icterus. No injection or drainage. NECK: Supple, trachea midline. No JVD or lymphadenopathy. CARDIOVASCULAR: Regular rate and rhythm without murmurs, gallops, or rubs. RESPIRATORY: Breath sounds equal bilaterally. No accessory muscle use. GASTROINTESTINAL: Abdomen soft, non-tender, nondistended. EXTREMITIES: No cyanosis, or edema. NEUROLOGICAL: Awake, alert, and oriented x 3. Non-focal. Laboratory Laboratory Tests Test 07/31/17 09:10 07/31/17 09:15 07/31/17 09:30 White Blood Count 18.9 Red Blood Count 4.96 Hemoglobin 14.0 Hematocrit 42.0 Mean Corpuscular Volume 84.6 Mean Corpuscular Hemoglobin 28.2 Mean Corpuscular Hemoglobin Concent 33.3 Red Cell Distribution Width 12.8 Platelet Count 234 Mean Platelet Volume 7.4 Neutrophils (%) (Auto) 91.7 Lymphocytes (%) (Auto) 2.9 Monocytes (%) (Auto) 3.1 Eosinophils (%) (Auto) 0.1 Basophils (%) (Auto) 2.2 Neutrophils # (Auto) 17.4 Lymphocytes # (Auto) 0.5 Monocytes # (Auto) 0.6 Eosinophils # (Auto) 0.0 Basophils # (Auto) 0.4 CBC Comment DIFF FINAL Differential Comment Blood Urea Nitrogen 12 Creatinine 1.00 Random Glucose 121 Total Protein 7.7 Albumin 2.3 Calcium Level 8.8 Alkaline Phosphatase 102 Aspartate Amino Transf (AST/SGOT) 13 Alanine Aminotransferase (ALT/SGPT) 19 Total Bilirubin 1.3 Sodium Level 132 Potassium Level 4.5 Chloride Level 98 Carbon Dioxide Level 24.7 Anion Gap 9 Estimat Glomerular Filtration Rate 86 Lactic Acid Level 1.6 Urine Collection Type CATH Urine Color YELLOW Urine Turbidity CLEAR Urine pH 6.0 Urine Specific [place] 1.021 Urine Protein TRACE Urine Glucose (UA) NEG Urine Ketones 15 Urine Occult Blood MOD Urine Nitrite NEG Urine Bilirubin NEG Urine Leukocyte Esterase NEG Urine RBC 0-3 Microscopic Urinalysis Comment CULT NOT INDICATED Date/Time Source Procedure Growth Status 07/31/17 09:10 Blood Peripheral Aerobic Blood Culture Pending Received 07/31/17 09:10 Blood Peripheral Anaerobic Blood Culture Pending Received Result Diagram: 07/31/17 0910 07/31/17 0915 Imaging Last Impressions Chest X-Ray 07/31/17 0834 Signed Impressions: Service Date/Time: Monday, July 31, 2017 08:50 - CONCLUSION: Minimal density at the bases likely related to minimal atelectasis or consolidation. MD Pierre Tompkins VTE Risk Assessment Caprini VTE Risk Assessment: No/Low Risk (score <= 1) Caprini Risk Assessment Model Point Value = 1 Point Value = 2 Point Value = 3 Point Value = 5 Age 41-60 Minor surgery BMI > 25 kg/m2 Swollen legs Varicose veins or History of unexplained or recurrent spontaneous Oral contraceptives or hormone replacement Sepsis (< 1 month) Serious lung disease, including pneumonia (< 1 month) Abnormal pulmonary function Acute myocardial infarction Congestive heart failure (< 1 month) History of inflammatory bowel disease Medical patient at bed rest Age 61-74 Arthroscopic surgery Major open surgery (> 45 min) Laparoscopic surgery (> 45 min) Malignancy Confined to bed (> 72 hours) Immobilizing plaster cast Central venous access Age >= 75 History of VTE Family history of VTE Factor V Leiden Prothrombin [id number] Lupus anticoagulant Anticardiolipin antibodies Elevated serum homocysteine Heparin-induced thrombocytopenia Other congenital or acquired thrombophilia Stroke (< 1 month) Elective arthroplasty Hip, pelvis, or leg fracture Acute spinal cord injury (< 1 month) Prophylaxis Regimen Total Risk Factor Score Risk Level Prophylaxis Regimen 0-1 Low Early ambulation 2 Moderate Order ONE of the following: *Sequential Compression Device (SCD) *Heparin 5000 units SQ BID 3-4 Higher Order ONE of the following medications: *Heparin 5000 units SQ TID *Enoxaparin/Lovenox 40 mg SQ daily (WT < 150 kg, CrCl > 30 mL/min) *Enoxaparin/Lovenox 30 mg SQ daily (WT < 150 kg, CrCl > 10-29 mL/min) *Enoxaparin/Lovenox 30 mg SQ BID (WT < 150 kg, CrCl > 30 mL/min) AND/OR *Sequential Compression Device (SCD) 5 or more Highest Order ONE of the following medications: *Heparin 5000 units SQ TID (Preferred with Epidurals) *Enoxaparin/Lovenox 40 mg SQ daily (WT < 150 kg, CrCl > 30 mL/min) *Enoxaparin/Lovenox 30 mg SQ daily (WT < 150 kg, CrCl > 10-29 mL/min) *Enoxaparin/Lovenox 30 mg SQ BID (WT < 150 kg, CrCl > 30 mL/min) AND *Sequential Compression Device (SCD) Assessment and Plan Problem List: (1) MRSA (methicillin resistant Staphylococcus aureus) septicemia ICD Code: A41.02 - Sepsis due to Methicillin resistant Staphylococcus aureus Status: Acute (2) Sepsis ICD Code: A41.9 - Sepsis, unspecified organism Status: Acute (3) Endocarditis ICD Code: I38 - Endocarditis, valve unspecified Status: Acute (4) IVDU (intravenous drug user) ICD Code: F19.90 - Other psychoactive substance use, unspecified, uncomplicated Status: Chronic Assessment and Plan -Sepsis, likely persistent endocarditis - the patient left AGAINST MEDICAL ADVICE 3 weeks ago from the hospital after 2 day hospitalization in which she was diagnosed with MRSA endocarditis and bacteremia with a small vegetation on his tricuspid valve. He returns now for ongoing care after having fevers and night sweats. Currently blood pressures running quite low however lactic acid is not elevated. We'll continue with IV fluids, vancomycin and Azactam. We'll likely need to reconsult infectious disease. Will repeat 2-D echocardiogram to evaluate the valve. -Chronic pain with IV drug abuse. The patient complains of chronic low back pain. He has never had surgery. At this time blood pressure is too low for opioids and we would avoid these given the patient's history. We'll start him on Neurontin which she states has worked in the past. -Headache -use Tylenol when necessary. -DVT prophylaxis with SCDs Problem Qualifiers (1) Endocarditis: Qualified Codes: I33.0 - Acute and subacute infective endocarditis (2) Sepsis: Qualified Codes: A41.9 - Sepsis, unspecified organism Eden Kuhn MD Jul 31, 2017 17:02
[2017-07-31] MEDS: GABAPENTIN 100 MG CAP PO SCH (17:36)
[2017-07-31] MEDS: DOCUSATE SODIUM 50 MG/SENNA 8.6 MG TAB PO SCH (21:25)
[2017-07-31] MEDS: SODIUM CHLORIDE 0.9% FLUSH 10 ML FLUSH IV FLUSH SCH (21:26)
[2017-07-31] MEDS: ACETAMINOPHEN 325 MG TAB PO PRN (21:30)
[2017-08-01] VITALS: BP 108/73; PULSE 91; RESP 18; TEMP 98; O2SAT 96
[2017-08-01] MEDS ORDERED: KETOROLAC TROMETHAMINE 30 MG/ML (IVP) VIAL IV PUSH ONE (02:00)
[2017-08-01] MEDS: AZTREONAM INJ 2,000 MG in SODIUM CHLORIDE 0.9% INJ 100 ML IV SCH ×3 (02:21→18:04)
[2017-08-01 04:00] VITALS: BP 104/62; PULSE 76; RESP 18; TEMP 98.5; O2SAT 98
[2017-08-01] MEDS: SODIUM CHLOR 0.9% 1000 ML INJ 1,000 ML IV SCH ×2 (05:32→18:04)
[2017-08-01 07:41] LABS: AUTOMATED NEUTROPHIL # 5.2 TH/MM3 (1.8-7.7); BASOPHIL % 0.6 % (0.0-2.0); EOSINOPHIL # 0.1 TH/MM3 (0-0.4); EOSINOPHIL % 1.2 % (0.0-4.0); HEMATOCRIT 36.2 % (39.0-51.0); HEMO FLAGS DIFF FINAL; LYMPH % 14.6 % (9.0-44.0); MEAN CELL VOLUME 86.5 FL (80.0-100.0); MEAN CORPUSCULAR HEMOGLOBIN 27.5 PG (27.0-34.0); MEAN CORPUSCULAR HGB CONC 31.7 % (32.0-36.0); MONO % 9.7 % (0.0-8.0); NEUT % 73.9 % (16.0-70.0); PLATELET COUNT 175 TH/MM3 (150-450); RED BLOOD COUNT 4.18 MIL/MM3 (4.50-5.90); RED CELL DISTRIBUTION WIDTH 13.1 % (11.6-17.2)
[2017-08-01 08:00] VITALS: BP 110/74; PULSE 80; RESP 20; TEMP 96.3; O2SAT 100
[2017-08-01 08:11] LABS: BICARBONATE 24.6 MEQ/L (21.0-32.0); POTASSIUM 4.7 MEQ/L (3.5-5.1)
[2017-08-01] MEDS: GABAPENTIN 100 MG CAP PO SCH (09:51)
[2017-08-01] MEDS: ACETAMINOPHEN 325 MG TAB PO PRN ×2 (09:53→22:24)
[2017-08-01] MEDS: SODIUM CHLORIDE 0.9% FLUSH 10 ML FLUSH IV FLUSH SCH ×2 (09:54→22:26)
[2017-08-01] MEDS: DOCUSATE SODIUM 50 MG/SENNA 8.6 MG TAB PO SCH ×2 (09:54→21:00)
[2017-08-01] MEDS: VANCOMYCIN INJ 1,000 MG in SODIUM CHLOR 0.9% 250 ML INJ 250 ML IV SCH ×2 (10:27→22:25)
[2017-08-01] MEDS: CALCIUM CARBONATE 500 MG CHEWABLE TAB CHEW PRN (11:37)
[2017-08-01 12:00] VITALS: BP 121/86; PULSE 78; RESP 20; TEMP 97; O2SAT 100
[2017-08-01] MEDS ORDERED: PANTOPRAZOLE SODIUM 40 MG VIAL IV PUSH ONE (12:00)
[2017-08-01] MEDS ORDERED: PROMETHAZINE INJ 25 MG/ML VIAL IM ONE (12:00)
--- NOTE | 2017-08-01 12:02 | HHI.PR ---
Subjective Remarks Patient had heartburn and emesis this morning. Now resolved. The patient is perseverating on pain medication requesting opiates, Xanax. Requesting methadone. The patient however had not been going to the methadone clinic. Patient complains that his pain is not being adequately treated. Patient is burning that he will stay in the hospital if he receives opiates. Objective Vitals Vital Signs Date Time Temp Pulse Resp B/P (MAP) Pulse Ox O2 Delivery O2 Flow Rate FiO2 08/01/17 10:53 18 08/01/17 08:00 96.3 80 20 110/74 (86) 100 08/01/17 07:00 Room Air 08/01/17 04:00 98.5 76 18 104/62 (76) 98 08/01/17 04:00 Room Air 08/01/17 00:00 Room Air 08/01/17 00:00 98.0 91 18 108/73 (85) 96 07/31/17 20:00 97.5 95 16 97/62 (74) 95 07/31/17 20:00 Room Air 07/31/17 17:38 92/56 (68) 07/31/17 16:01 89 17 100/71 (81) 97 07/31/17 16:00 95.5 100 20 82/54 (63) 95 07/31/17 15:00 87 97 Room Air 07/31/17 14:00 86 16 100/62 (75) 97 Room Air 07/31/17 13:30 92 16 103/62 (76) 98 Nasal Cannula 2.00 07/31/17 13:00 86 16 99 Nasal Cannula 2.00 07/31/17 13:00 96 16 102/58 (73) 99 Nasal Cannula 2.00 07/31/17 12:30 106 16 110/67 (81) 98 Nasal Cannula 2.00 07/31/17 12:28 16 07/31/17 12:00 105 16 101/62 (75) 98 Nasal Cannula 2.00 I/O 07/31/17 07/31/17 07/31/17 08/01/17 08/01/17 08/01/17 07:00 15:00 23:00 07:00 15:00 23:00 Intake Total 3650 ml 2300 ml 2070 ml Output Total 250 ml 851 ml Balance 3400 ml 1449 ml 2070 ml Intake Oral 500 ml 500 ml 720 ml IV Total 3150 ml 1800 ml 1350 ml Output Urine Total 250 ml 850 ml Stool Total 1 ml # Voids 2 Result Diagram: 08/01/1772708/01/17727 Objective Remarks GENERAL: Well-nourished, well-developed patient. SKIN: Warm and dry. HEAD: Normocephalic. EYES: No scleral icterus. No injection or drainage. NECK: Supple, trachea midline. No JVD or lymphadenopathy. CARDIOVASCULAR: Regular rate and rhythm without murmurs, gallops, or rubs. RESPIRATORY: Breath sounds equal bilaterally. No accessory muscle use. GASTROINTESTINAL: Abdomen soft, non-tender, nondistended. EXTREMITIES: No cyanosis, or edema. NEUROLOGICAL: Awake, alert, and oriented x 3. Non-focal. A/P Problem List: (1) MRSA (methicillin resistant Staphylococcus aureus) septicemia ICD Code: A41.02 - Sepsis due to Methicillin resistant Staphylococcus aureus Status: Acute (2) Sepsis ICD Code: A41.9 - Sepsis, unspecified organism Status: Acute (3) Endocarditis ICD Code: I38 - Endocarditis, valve unspecified Status: Acute (4) IVDU (intravenous drug user) ICD Code: F19.90 - Other psychoactive substance use, unspecified, uncomplicated Status: Chronic Assessment and Plan -Sepsis, likely persistent endocarditis - the patient left AGAINST MEDICAL ADVICE 3 weeks ago from the hospital after 2 day hospitalization in which she was diagnosed with MRSA endocarditis and bacteremia with a small vegetation on his tricuspid valve. He returns now for ongoing care after having fevers and night sweats. Blood cultures this admission growing MRSA. Blood pressure was low yesterday but improved today. We'll continue with IV fluids, vancomycin and Azactam. Reconsult infectious disease. 2-D echocardiogram pending to evaluate the valve. -Active IV drug abuse. Avoid opioids. Continue supportive care. -Chronic low back pain. The patient complains of chronic low back pain. He has never had surgery. Use non-opioid pain analgesics including Toradol, Neurontin, Tylenol. -Insomnia. Start Benadryl as needed. -Dyspepsia. Start Tums, Protonix. -Headache -use Tylenol when necessary. -DVT prophylaxis with SCDs Problem Qualifiers (1) Sepsis: Qualified Codes: A41.9 - Sepsis, unspecified organism (2) Endocarditis: Qualified Codes: I33.0 - Acute and subacute infective endocarditis Eden Kuhn MD Aug 01, 2017 12:02
[2017-08-01] MEDS: KETOROLAC TROMETHAMINE 30 MG/ML (IVP) VIAL IV PUSH PRN ×2 (14:01→22:25)
[2017-08-01] MEDS: GABAPENTIN 300 MG CAP PO SCH ×2 (14:04→18:04)
[2017-08-01 16:00] VITALS: BP 119/79; PULSE 81; RESP 20; TEMP 97.3; O2SAT 100
[2017-08-01 20:00] VITALS: BP 121/70; PULSE 92; RESP 20; TEMP 99; O2SAT 100
[2017-08-01] MEDS: diphenhydrAMINE HCL 25 MG CAP PO PRN (22:24)
[2017-08-02] VITALS: BP 106/63; PULSE 73; RESP 16; TEMP 96.5; O2SAT 100
[2017-08-02] MEDS: SODIUM CHLOR 0.9% 1000 ML INJ 1,000 ML IV SCH ×3 (01:32→21:24)
[2017-08-02] MEDS: AZTREONAM INJ 2,000 MG in SODIUM CHLORIDE 0.9% INJ 100 ML IV SCH ×3 (02:00→18:00)
[2017-08-02 08:00] VITALS: BP 131/88; PULSE 83; RESP 18; TEMP 95.5; O2SAT 94
[2017-08-02] MEDS: DOCUSATE SODIUM 50 MG/SENNA 8.6 MG TAB PO SCH ×2 (09:00→21:23)
[2017-08-02] MEDS: GABAPENTIN 300 MG CAP PO SCH ×4 (09:04→18:15)
[2017-08-02] MEDS: SODIUM CHLORIDE 0.9% FLUSH 10 ML FLUSH IV FLUSH SCH ×2 (09:04→21:23)
[2017-08-02] MEDS: VANCOMYCIN INJ 1,000 MG in SODIUM CHLOR 0.9% 250 ML INJ 250 ML IV SCH (10:32)
[2017-08-02] MEDS: KETOROLAC TROMETHAMINE 30 MG/ML (IVP) VIAL IV PUSH PRN ×2 (10:35→21:23)
[2017-08-02 12:00] VITALS: BP 116/89; PULSE 100; RESP 18; TEMP 95; O2SAT 99
--- NOTE | 2017-08-02 13:29 | PD.ID.CON ---
History of Present Illness Service ID Consult Requested By Reason for Consult Evaluation and management of MRSA endocarditis. 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 He admits to IV drug abuse as recent as a few days prior to admission. Patient reports that he has back pain from an injury in the past in his lumbar region after which she started doing drugs. During his last hospitalization patient was diagnosed with MRSA endocarditis and bacteremia underwent a 2-D echo which showed tricuspid valve vegetation. At that time he left AMA only did 2 days into the hospitalization. Patient reports that he had some left over cellulitis medications probably sulfa and he has been consuming this for the last several weeks. Patient now reports night sweats and fevers. He also reports severe pulsating headache which is worse with cough. He denies any visual changes. No weakness or paresthesias. Patient has chronic low back pain with no further increases in intensity or character change in character of pain. Patient reports that in the past when he was in [place] he was given IV vancomycin several times and each time he would be discharged with a PICC line and some narcotics to go with that. He reports that work well for him and he would like for us to meet him snf and give him opioids during hospitalization as well as on discharge. He denies being a part of any de-addiction programs. He did receive clindamycin and has received a dose of vancomycin and Azactam as well as a 2 L fluid bolus. Lactic acid level 1.6. The patient admits to ongoing active IV drug use. BCX done on admission are positive for MRSA, Bacillus and other Gram positive organisms. ID is consulted for evaluation and Mment of MRSA endocarditis. Patient reports that he has to go to work and take care of business. 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 He tells me he will leave hospital on Aug 06 irrespective of where the workup stands. Review of Systems Constitutional: COMPLAINS OF: Diaphoretic episodes, Chills, Night Sweats, DENIES: Fatigue, Fever, Weight gain, Weight loss, Dizziness, Change in appetite Endocrine: DENIES: Heat/cold intolerance, Polydipsia, Polyuria, Polyphagia Eyes: DENIES: Blurred vision, Diplopia, Eye inflammation, Eye pain, Vision loss , Photosensitivity, Double Vision Ears, nose, mouth, throat: DENIES: Tinnitus, Hearing loss, Vertigo, Nasal discharge, Oral lesions, Throat pain, Hoarseness, Ear Pain, Running Nose, Epistaxis, Sinus Pain, Toothache, Odynophagia Respiratory: DENIES: Apneas, Cough, Snoring, Wheezing, Hemoptysis, Sputum production, Shortness of breath Cardiovascular: DENIES: Chest pain, Palpitations, Syncope, Dyspnea on Exertion , PND, Lower Extremity Edema, Orthopnea, Claudication Gastrointestinal: DENIES: Abdominal pain, Black stools, Bloody stools, Constipation, Diarrhea, Nausea, Vomiting, Difficulty Swallowing, Anorexia Genitourinary: DENIES: Sexual dysfunction, Urinary frequency, Urinary incontinence, Urgency, Hematuria, Dysuria, Nocturia, Penile Discharge, Testicular Pain, Testicular Swelling Musculoskeletal: COMPLAINS OF: Back pain (chronic no change in intensity or type.) Integumentary: DENIES: Abnormal pigmentation, Nail changes, Pruritus, Rash Hematologic/lymphatic: DENIES: Bruising, Lymphadenopathy Immunologic/allergic: DENIES: Eczema, Urticaria Neurologic: DENIES: Abnormal gait, Headache, Localized weakness, Paresthesias, Seizures, Speech Problems, Tremor, Poor Balance Psychiatric: DENIES: Anxiety, Confusion, Mood changes, Depression, Hallucinations, Agitation, Suicidal Ideation, Homicidal Ideation, Delusions Except as stated in HPI: all other systems reviewed are Neg Past Family Social History Allergies: Coded Allergies: penicillin G (Verified Allergy, Severe, 07/31/17) allergy codeine (Verified Allergy, Unknown, 07/31/17) Past Medical History IVDU Chronic low back pain Previous history of endocarditis several years ago Past Surgical History None per patient. Reported Medications Reported Meds & Active Scripts Active No Active Prescriptions or Reported Medications Active Ordered Medications Current Medications Medications (Trade) Dose Ordered Sig/Josemanuel Route Start Time Stop Time Status Last Admin Vancomycin HCl 1000 mg/Sodium Chloride 250 ml @ 250 mls/hr Q12H IV 07/31/17 11:00 08/02/17 10:32 Aztreonam 2000 mg/ Sodium Chloride 100 ml @ 200 mls/hr Q8H IV 07/31/17 10:00 08/02/17 09:04 Sodium Chloride 1,000 ml @ 100 mls/hr Q10H IV 07/31/17 09:32 08/01/17 18:04 (NS Flush) 2 ml UNSCH PRN IV FLUSH 07/31/17 09:45 07/31/17 12:38 (NS Flush) 2 ml BID IV FLUSH 07/31/17 21:00 08/02/17 09:04 (Tylenol) 650 mg Q4H PRN PO 07/31/17 09:45 08/01/17 22:24 (Zofran Inj) 4 mg Q6H PRN IVP 07/31/17 09:45 08/01/17 11:24 (Narcan Inj) 0.4 mg UNSCH PRN IV PUSH 07/31/17 09:45 (Gladis-Colace) 1 tab BID PO 07/31/17 21:00 08/01/17 09:54 (Milk Of Magnesia Liq) 30 ml Q12H PRN PO 07/31/17 09:45 (Senokot) 17.2 mg Q12H PRN PO 07/31/17 09:45 (Dulcolax Supp) 10 mg DAILY PRN RECTAL 07/31/17 09:45 (Lactulose Liq) 30 ml DAILY PRN PO 07/31/17 09:45 (Tums Chew) 500 mg Q2H PRN CHEW 08/01/17 11:30 08/01/17 11:37 (Benadryl) 25 mg Q4H PRN PO 08/01/17 12:00 08/01/17 22:24 (Neurontin) 300 mg TID PO 08/01/17 13:00 08/02/17 12:04 (Toradol Inj) 15 mg Q6H PRN IV PUSH 08/01/17 12:00 08/06/17 11:59 08/02/17 10:35 Family History reviewed and NC Social History 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 Physical Exam Vital Signs Vital Signs Date Time Temp Pulse Resp B/P (MAP) Pulse Ox O2 Delivery O2 Flow Rate FiO2 08/02/17 08:00 95.5 83 18 131/88 (102) 94 08/02/17 00:00 96.5 73 16 106/63 (77) 100 08/01/17 20:00 99.0 92 20 121/70 (87) 100 08/01/17 19:00 Room Air 08/01/17 16:00 97.3 81 20 119/79 (92) 100 08/01/17 15:01 18 Physical Exam GENERAL: This is a well-nourished, well-developed patient, in no apparent distress. SKIN: Multiple old skin lesions and track blackwell noted. HEAD: Atraumatic. Normocephalic. No temporal or scalp tenderness. EYES: Pupils equal round and reactive. Extraocular motions intact. No scleral icterus. No injection or drainage. ENT: Nose without bleeding, purulent drainage or septal hematoma. Throat without erythema, tonsillar hypertrophy or exudate. Uvula midline. Airway patent. NECK: Trachea midline. Supple, nontender, no meningeal signs. CARDIOVASCULAR: Regular rate and rhythm without murmurs, gallops, or rubs. RESPIRATORY: Clear to auscultation. Breath sounds equal bilaterally. No wheezes , rales, or rhonchi. GASTROINTESTINAL: Abdomen soft, non-tender, nondistended. MUSCULOSKELETAL: Extremities without clubbing, cyanosis, or edema. No joint tenderness, effusion, or edema noted. No calf tenderness. Negative Homans sign bilaterally. NEUROLOGICAL: Awake and alert. Grossly non focal Psych: cooperative IV line sites with no e.o infection. Laboratory Date/Time Source Procedure Growth Status 07/31/17 09:10 Blood Peripheral Aerobic Blood Culture - Preliminary S. Aureus Mrsa Resulted 07/31/17 09:10 Anaerobic Blood Culture - Final S. Aureus Mrsa Resulted Result Diagram: 08/01/17 0728 08/01/17 0728 Imaging Last Impressions Chest X-Ray 07/31/17 0834 Signed Impressions: Service Date/Time: Monday, July 31, 2017 08:50 - CONCLUSION: Minimal density at the bases likely related to minimal atelectasis or consolidation. Kenny Zambrano MD Assessment and Plan Assessment and Plan Sepsis present on admission. MRSA endocarditis partially treated. Ongoing drug abuse. Now with MRSA, bacillus and other Gram positive bacteremia plus endocarditis. Drug seeking behavior Non compliance in past, signed off AMA. Recs: Continue Vanco IV (target 15-20) Continue Aztreonam IV for now. Follow cultures to deescalate. Repeat blood cultures x 2 Follow cultures follow clinically. tye Leon MD. Dr.Reba Harden and other ID MDs to cover for me from tomorrow. Sarahi Napoles MD Aug 02, 2017 13:29
[2017-08-02 16:00] VITALS: BP 102/71; PULSE 104; RESP 18; TEMP 98.2; O2SAT 98
--- NOTE | 2017-08-02 16:54 | HHI.PR ---
Subjective Remarks Patient reports that he has persistent pain from his hips going down on the lateral aspects of both thighs, says he still feels like his fevers and chills. 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 Objective Vital Signs Date Time Temp Pulse Resp B/P (MAP) Pulse Ox O2 Delivery O2 Flow Rate FiO2 08/02/17 12:00 95.0 100 18 116/89 (98) 99 08/02/17 08:00 95.5 83 18 131/88 (102) 94 08/02/17 07:00 Room Air 08/02/17 00:00 96.5 73 16 106/63 (77) 100 08/01/17 20:00 99.0 92 20 121/70 (87) 100 08/01/17 19:00 Room Air I/O 08/01/17 08/01/17 08/01/17 08/02/17 08/02/17 08/02/17 07:00 15:00 23:00 07:00 15:00 23:00 Intake Total 2070 ml 2780 ml 1600 ml 100 ml Output Total 2 ml 1100 ml Balance 2070 ml 2778 ml 500 ml 100 ml Intake Oral 720 ml 2780 ml 1100 ml IV Total 1350 ml 500 ml 100 ml Output Urine Total 1100 ml Stool Total 2 ml # Voids 8 2 # Bowel Movements 1 0 Result Diagram: 08/01/1772708/01/17727 Objective Remarks No acute distress Heart: Regular rate rhythm, no murmurs, no lower extremity edema Ambulatory with stable gait A/P Assessment and Plan 32-year-old white male who was admitted for sepsis secondary to endocarditis, originally had left AGAINST MEDICAL ADVICE 3 weeks ago in which point he was diagnosed with MRSA endocarditis and bacteremia with a small vegetation on his tricuspid valve. -Sepsis, likely persistent endocarditis - the patient left AGAINST MEDICAL ADVICE 3 weeks ago from the hospital after 2 day hospitalization in which she was diagnosed with MRSA endocarditis and bacteremia with a small vegetation on his tricuspid valve. He returns now for ongoing care after having fevers and night sweats. Blood cultures this admission growing MRSA. -endocarditis - ID following. zosyn and vanc per ID. Will f/u 2D-echo (repeat) to assess for vegetation. (growth noted on TV on previous echo) -bacteremia MRSA, bacillus and other Gram positive bacteremia - continue abx as above -Active IV drug abuse. Avoid opioids. Continue supportive care. -Chronic low back pain. Using non-opioid pain analgesics including Toradol, Neurontin, Tylenol. We'll increase gabapentin dosing from 800 mg 3 times a day to 1200 mg 3 times a day, can consider lidocaine patch over painful pressure points. -Insomnia. Benadryl as needed. Will add on melatonin as well -Dyspepsia. Tums, Protonix. -Headache -use Tylenol when necessary. DVT prophylaxis with SCDs Christiano Castro MD Aug 02, 2017 16:54
[2017-08-02 20:00] VITALS: BP 97/60; PULSE 85; RESP 18; TEMP 99.3; O2SAT 100
[2017-08-02] MEDS: diphenhydrAMINE HCL 25 MG CAP PO PRN (21:33)
[2017-08-02] MEDS: CALCIUM CARBONATE 500 MG CHEWABLE TAB CHEW PRN (21:33)
[2017-08-02] MEDS: MELATONIN 5 MG TAB PO PRN (21:33)
[2017-08-03] VITALS: BP 121/73; PULSE 73; RESP 18; TEMP 97.9; O2SAT 100
[2017-08-03] MEDS: VANCOMYCIN INJ 1,000 MG in SODIUM CHLOR 0.9% 250 ML INJ 250 ML IV SCH (00:20)
[2017-08-03] MEDS: SODIUM CHLORIDE 0.9% FLUSH 10 ML FLUSH IV FLUSH PRN (00:20)
[2017-08-03] MEDS: AZTREONAM INJ 2,000 MG in SODIUM CHLORIDE 0.9% INJ 100 ML IV SCH ×3 (02:00→17:57)
[2017-08-03] MEDS: SODIUM CHLOR 0.9% 1000 ML INJ 1,000 ML IV SCH ×2 (07:32→17:32)
[2017-08-03] MEDS ORDERED: Vancomycin Consult Pharmacy 1 EA OTHER SCH (08:45)
[2017-08-03] MEDS: DOCUSATE SODIUM 50 MG/SENNA 8.6 MG TAB PO SCH ×2 (09:00→20:54)
[2017-08-03 09:36] VITALS: BP 134/84; PULSE 82; RESP 18; TEMP 96.3; O2SAT 99
[2017-08-03] MEDS: GABAPENTIN 300 MG CAP PO SCH ×3 (09:36→17:57)
[2017-08-03] MEDS: SODIUM CHLORIDE 0.9% FLUSH 10 ML FLUSH IV FLUSH SCH ×2 (09:36→20:54)
[2017-08-03] MEDS: KETOROLAC TROMETHAMINE 30 MG/ML (IVP) VIAL IV PUSH PRN ×2 (09:38→18:01)
[2017-08-03] MEDS: VANCOMYCIN INJ 1,250 MG in SODIUM CHLOR 0.9% 250 ML INJ 250 ML IV SCH ×2 (11:21→18:55)
--- NOTE | 2017-08-03 12:09 | ECHRPT ---
Indication: endocarditis CONCLUSIONS Normal left ventricular size. Mild concentric left ventricular hypertrophy. The left ventricular systolic function is normal with an estimated ejection fraction in the range of 55-60%. Mild mitral valve regurgitation. Mobile echogenic structure in the tricuspid valve consistent with a vegetation Severe tricuspid regurgitation. Mild pulmonary hypertension present (range 40-50 mmHg). BP: / HR: Rhythm: MEASUREMENTS (Male / Female) Normal Values Technical Quality:Good 2D ECHO LV Diastolic Diameter PLAX 4.4 cm 4.2 - 5.9 / 3.9 - 5.3 cm LV Systolic Diameter PLAX 3.6 cm IVS Diastolic Thickness 1.1 cm 0.6 - 1.0 / 0.6 - 0.9 cm LVPW Diastolic Thickness 1.0 cm 0.6 - 1.0 / 0.6 - 0.9 cm LV Relative Wall Thickness 0.5 RV Internal Dim ED PLAX 3.0 cm DOPPLER TR Peak Velocity 332.0 cm/s TR Peak Gradient 44.1 mmHg Right Atrial Pressure 10.0 mmHg Pulmonary Artery Systolic Pressu 54.1 mmHg Right Ventricular Systolic Press 54.1 mmHg FINDINGS LEFT VENTRICLE Normal left ventricular size. Mild concentric left ventricular hypertrophy. The left ventricular systolic function is normal with an estimated ejection fraction in the range of 55-60%. RIGHT VENTRICLE Normal right ventricular size and systolic function. LEFT ATRIUM The left atrial size is normal. RIGHT ATRIUM The right atrial size is normal. ATRIAL SEPTUM Normal atrial septal thickness without atrial level shunting by limited color doppler interrogation. AORTA The aortic root and proximal ascending aorta are normal in size on limited imaging. MITRAL VALVE Structurally normal mitral valve. Mild mitral valve regurgitation. AORTIC VALVE Trileaflet aortic valve. No aortic valve stenosis or regurgitation. TRICUSPID VALVE tricuspid valve vegetation There is severe tricuspid regurgitation. There is estimated mild pulmonary hypertension present (range 40-50 mmHg). PULMONARY VALVE No pulmonary valve regurgitation or stenosis. VESSELS The inferior vena cava is normal in size. PERICARDIUM No pericardial effusion. Robert Grossman MD (Electronically Signed) Final Date:03 August 2017 12:08
[2017-08-03 15:13] VITALS: BP 173/92; PULSE 80; RESP 16; TEMP 97.9; O2SAT 100
--- NOTE | 2017-08-03 15:30 | HHI.PR ---
Subjective Remarks Nursing reports no acute changes since last night . Patient himself says that his pain is much better with the increased dose of gabapentin . Says he thinks a heating pad would be really good on his back right now . Reports that he feels no chills or fevers at all today, doesn't feel "outwardly ill" anymore. Says he also slept better last night since melatonin was added Objective Vital Signs Date Time Temp Pulse Resp B/P (MAP) Pulse Ox O2 Delivery O2 Flow Rate FiO2 08/03/17 15:13 97.9 80 16 173/92 (119) 100 08/03/17 10:38 18 08/03/17 09:36 96.3 82 18 134/84 (101) 99 08/03/17 00:00 97.9 73 18 121/73 (89) 100 08/02/17 20:00 99.3 85 18 97/60 (72) 100 08/02/17 20:00 100 Room Air 08/02/17 16:00 98.2 104 18 102/71 (81) 98 I/O 08/02/17 08/02/17 08/02/17 08/03/17 08/03/17 08/03/17 07:00 15:00 23:00 07:00 15:00 23:00 Intake Total 1600 ml 1275 ml 350 ml Output Total 1100 ml 750 ml Balance 500 ml 1275 ml -400 ml Intake Oral 1100 ml 1175 ml IV Total 500 ml 100 ml 350 ml Output Urine Total 1100 ml 750 ml # Voids 2 5 # Bowel Movements 0 0 Result Diagram: 08/01/17 0728 08/01/17 0728 Objective Remarks No acute distress Heart: Regular rate rhythm, no murmurs, no lower extremity edema Ambulatory with stable gait A/P Assessment and Plan 32-year-old white male who was admitted for sepsis secondary to endocarditis, originally had left AGAINST MEDICAL ADVICE 3 weeks ago in which point he was diagnosed with MRSA endocarditis and bacteremia with a small vegetation on his tricuspid valve. -Sepsis, likely persistent endocarditis - the patient left AGAINST MEDICAL ADVICE 3 weeks ago from the hospital after 2 day hospitalization in which she was diagnosed with MRSA endocarditis and bacteremia with a small vegetation on his tricuspid valve. He returns now for ongoing care after having fevers and night sweats. Blood cultures this admission growing MRSA. -endocarditis - ID following. aztreonam and vanc per ID. f/u 2D-echo (repeat) shows no mention of a vegetation. -bacteremia MRSA, bacillus and other Gram positive bacteremia - continue abx as above. repeat Bcx's are neg x2 -Active IV drug abuse. Avoid opioids. Continue supportive care. -Chronic low back pain. doing better w/ increased gabapentin dosing to 900 mg 3 times a day, will try heating pad applications. Can consider lidocaine patch over painful pressure points. -Insomnia. improved w/ melatonin.Benadryl as needed. -Dyspepsia. Tums, Protonix. -Headache -use Tylenol when necessary. DVT prophylaxis with SCDs Christiano Castro MD Aug 03, 2017 15:30
--- NOTE | 2017-08-03 19:00 | HHI.IDPN ---
Subjective Subjective Antibiotics ID FU DR SINGH PT AWAKE SITTING UP IN BED NO COMPLAINTS WANTS TO LEAVE PT RATIONALIZING LEAVING TO GO AND USE IV MEDICATION STATES IT IS MORE COST EFFECTIVE Allergies: Coded Allergies: penicillin G (Verified Allergy, Severe, 07/31/17) allergy codeine (Verified Allergy, Unknown, 07/31/17) Review of Systems Musculoskeletal Musculoskeletal: Discomfort/Pain MS Remarks BACK PAIN CHRONIC Objective . Vital Signs Date Time Temp Pulse Resp B/P (MAP) Pulse Ox O2 Delivery O2 Flow Rate FiO2 08/03/17 15:13 97.9 80 16 173/92 (119) 100 08/03/17 10:38 18 08/03/17 09:36 96.3 82 18 134/84 (101) 99 08/03/17 07:00 99 Room Air 08/03/17 00:00 97.9 73 18 121/73 (89) 100 08/02/17 20:00 99.3 85 18 97/60 (72) 100 08/02/17 20:00 100 Room Air . Microbiology Date/Time Source Procedure Growth Status 08/02/17 18:20 Blood Peripheral Aerobic Blood Culture - Preliminary NO GROWTH IN 1 DAY Resulted 08/02/17 18:20 Blood Peripheral Anaerobic Blood Culture - Preliminary NO GROWTH IN 1 DAY Resulted 08/02/17 18:20 Blood Peripheral Aerobic Blood Culture - Preliminary NO GROWTH IN 1 DAY Resulted 08/02/17 18:20 Blood Peripheral Anaerobic Blood Culture - Preliminary NO GROWTH IN 1 DAY Resulted Physical Exam AWAKE / OX 3 PERRL NS CHEST: BS EQUAL NO C/R/R/W CARDIAC: S1S2 REGULAR + MURMUR ABD: SOFT ACTIVE EXT . NO EDEMA Assessment & Plan Diagnosis: (1) Endocarditis ICD Codes: I38 - Endocarditis, valve unspecified Status: Acute Plan: PT ON VANCOMYCIN REPEAT BC NEGATIVE 08/02 WILL NEED 4-6 WEEKS OF ANTIBIOTIC IV FROM THIS DATE PT IS SUPER HIGH RISK TO USE PICC LINE IF DCD WITH IT. WOULD NOT RECOMMEND WOULD RECOMMEND REHAB OR INPATIENT STAY WHILE ON ANTIBIOTICS (2) MRSA (methicillin resistant Staphylococcus aureus) septicemia ICD Codes: A41.02 - Sepsis due to Methicillin resistant Staphylococcus aureus Status: Acute (3) IVDU (intravenous drug user) ICD Codes: F19.90 - Other psychoactive substance use, unspecified, uncomplicated Status: Chronic Problem Qualifiers (1) Endocarditis: Qualified Codes: I33.0 - Acute and subacute infective endocarditis [place],[employer]ES PERSON Aug 03, 2017 19:00
[2017-08-03 19:37] VITALS: BP 113/70; PULSE 79; RESP 14; TEMP 98; O2SAT 99
[2017-08-03 20:00] VITALS: BP 138/91; PULSE 81; RESP 20; TEMP 97.9; O2SAT 100
[2017-08-03] MEDS: diphenhydrAMINE HCL 25 MG CAP PO PRN (20:59)
[2017-08-03] MEDS: MELATONIN 5 MG TAB PO PRN (20:59)
[2017-08-04] VITALS: BP 142/93; PULSE 78; RESP 20; TEMP 96.9; O2SAT 100
[2017-08-04] MEDS: SODIUM CHLORIDE 0.9% FLUSH 10 ML FLUSH IV FLUSH PRN ×2 (00:05→01:57)
[2017-08-04] MEDS: KETOROLAC TROMETHAMINE 30 MG/ML (IVP) VIAL IV PUSH PRN ×4 (00:05→20:08)
[2017-08-04] MEDS: CALCIUM CARBONATE 500 MG CHEWABLE TAB CHEW PRN ×2 (00:13→21:37)
[2017-08-04] MEDS: VANCOMYCIN INJ 1,250 MG in SODIUM CHLOR 0.9% 250 ML INJ 250 ML IV SCH ×5 (01:56→20:00)
[2017-08-04] MEDS: SODIUM CHLOR 0.9% 1000 ML INJ 1,000 ML IV SCH ×2 (03:32→12:25)
[2017-08-04 08:55] VITALS: BP 135/78; PULSE 85; RESP 22; TEMP 97.4; O2SAT 100
[2017-08-04] MEDS: SODIUM CHLORIDE 0.9% FLUSH 10 ML FLUSH IV FLUSH SCH ×2 (09:22→20:08)
[2017-08-04] MEDS: DOCUSATE SODIUM 50 MG/SENNA 8.6 MG TAB PO SCH ×2 (09:22→20:09)
[2017-08-04] MEDS: GABAPENTIN 300 MG CAP PO SCH ×3 (09:22→18:45)
[2017-08-04] MEDS ORDERED: PHARMACY ORDERED LAB ONE (09:45)
[2017-08-04] MEDS: NICOTINE 21 MG/24 HR PATCH T-DERMAL SCH (12:28)
[2017-08-04 13:47] VITALS: BP 144/94; PULSE 79; RESP 18; TEMP 97.8; O2SAT 100
--- NOTE | 2017-08-04 16:00 | HHI.PR ---
Subjective Remarks Nursing reports no acute changes since last night apart from the patient requesting a nicotine patch. Patient denies having any fevers or chills, tolerating by mouth intake well. Says that the heating pads have worked really well as well as the gabapentin. He says he smokes about 3 packs of cigarettes a day and is requesting high-dose patch Objective Vital Signs Date Time Temp Pulse Resp B/P (MAP) Pulse Ox O2 Delivery O2 Flow Rate FiO2 08/04/17 13:47 97.8 79 18 144/94 (111) 100 08/04/17 08:55 97.4 85 22 135/78 (97) 100 08/04/17 00:00 96.9 78 20 142/93 (109) 100 08/03/17 20:00 97.9 81 20 138/91 (107) 100 08/03/17 20:00 100 Room Air 08/03/17 19:37 98.0 79 14 113/70 (84) 99 08/03/17 19:01 18 I/O 08/03/17 08/03/17 08/03/17 08/04/17 08/04/17 08/04/17 07:00 15:00 23:00 07:00 15:00 23:00 Intake Total 350 ml 1653 ml 1212 ml 250 ml Output Total 750 ml Balance -400 ml 1653 ml 1212 ml 250 ml Intake Oral 1300 ml 960 ml IV Total 350 ml 353 ml 252 ml 250 ml Output Urine Total 750 ml # Voids 4 4 # Bowel Movements 1 Result Diagram: 08/01/17 0728 08/04/17 0930 Objective Remarks No acute distress Heart: Regular rate rhythm, no murmurs, no lower extremity edema Ambulatory with stable gait A/P Assessment and Plan 32-year-old white male who was admitted for sepsis secondary to endocarditis, originally had left AGAINST MEDICAL ADVICE 3 weeks ago in which point he was diagnosed with MRSA endocarditis and bacteremia with a small vegetation on his tricuspid valve. -endocarditis - ID following. aztreonam and vanc per ID. f/u 2D-echo (repeat) shows no mention of a vegetation. I noted their note after my examination with patient today. To be discussed tomorrow as to whether patient would like to stay in-house for entire course of treatment (at least 4 wks) or placement ( which would be difficult given self-pay status) since again he is not a candidate for PICC line. Stopping IV fluids since patient is no longer septic -bacteremia MRSA, bacillus and other Gram positive bacteremia - continue abx as above. repeat Bcx's are neg x2 -Active IV drug abuse. Avoid opioids. Continue supportive care. -Chronic low back pain. doing better w/ increased gabapentin dosing to 900 mg 3 times a day, heating pad applications. -Tobacco use - starting high dose nicotine patch -Insomnia. improved w/ melatonin.Benadryl as needed. -Dyspepsia. Tums, Protonix. -Headache -use Tylenol when necessary. DVT prophylaxis with SCDs Christiano Castro MD Aug 04, 2017 16:00
[2017-08-04 17:01] VITALS: BP 124/97; PULSE 85; RESP 22; TEMP 97.4; O2SAT 100
[2017-08-04 20:00] VITALS: BP 136/97; PULSE 87; RESP 20; TEMP 96.4; O2SAT 99
[2017-08-04] MEDS: MELATONIN 5 MG TAB PO PRN (21:36)
[2017-08-04] MEDS: diphenhydrAMINE HCL 25 MG CAP PO PRN (21:37)
[2017-08-05] VITALS: BP 135/87; PULSE 73; RESP 20; TEMP 96.6; O2SAT 99
[2017-08-05] MEDS: KETOROLAC TROMETHAMINE 30 MG/ML (IVP) VIAL IV PUSH PRN ×3 (01:54→18:45)
[2017-08-05] MEDS: SODIUM CHLORIDE 0.9% FLUSH 10 ML FLUSH IV FLUSH PRN ×2 (01:54→04:18)
[2017-08-05] MEDS: VANCOMYCIN INJ 1,250 MG in SODIUM CHLOR 0.9% 250 ML INJ 250 ML IV SCH ×3 (04:15→20:30)
[2017-08-05 08:00] VITALS: BP 137/63; PULSE 68; RESP 18; TEMP 97.7; O2SAT 100
[2017-08-05] MEDS: REMOVE OLD PATCH T-DERMAL SCH (09:00)
[2017-08-05] MEDS: GABAPENTIN 300 MG CAP PO SCH ×3 (10:28→17:00)
[2017-08-05] MEDS: DOCUSATE SODIUM 50 MG/SENNA 8.6 MG TAB PO SCH ×2 (10:28→20:31)
[2017-08-05] MEDS: NICOTINE 21 MG/24 HR PATCH T-DERMAL SCH (10:29)
[2017-08-05] MEDS: SODIUM CHLORIDE 0.9% FLUSH 10 ML FLUSH IV FLUSH SCH ×2 (10:34→20:30)
--- NOTE | 2017-08-05 11:12 | HHI.PR ---
Subjective Remarks Follow-up for endocarditis. Patient states his low back is sore and he has pain in his hips from sciatica. States the heating pad is working, but states he was on Flexeril and tizanidine for back pain when he was clean and requests muscle relaxant. He denies any fevers or chills. Objective Vitals Vital Signs Date Time Temp Pulse Resp B/P (MAP) Pulse Ox O2 Delivery O2 Flow Rate FiO2 08/05/17 08:00 97.7 68 18 137/63 (87) 100 08/05/17 00:00 96.6 73 20 135/87 (103) 99 08/04/17 20:00 96.4 87 20 136/97 (110) 99 08/04/17 17:01 97.4 85 22 124/97 (106) 100 08/04/17 13:47 97.8 79 18 144/94 (111) 100 I/O 08/04/17 08/04/17 08/04/17 08/05/17 08/05/17 08/05/17 07:00 15:00 23:00 07:00 15:00 23:00 Intake Total 1212 ml 250 ml 470 ml 1210 ml Balance 1212 ml 250 ml 470 ml 1210 ml Intake Oral 960 ml 960 ml IV Total 252 ml 250 ml 470 ml 250 ml # Voids 4 4 # Bowel Movements 1 Result Diagram: 08/01/17 0728 08/04/17 0930 Objective Remarks Vitals good. GENERAL: Well nourished, well developed patient in no apparent distress. CARDIOVASCULAR: Regular rate and rhythm. 2/6 murmur in apex region. RESPIRATORY: No accessory muscle use. Clear to auscultation. Breath sounds equal bilaterally. GASTROINTESTINAL: Abdomen soft, non-tender, nondistended. MUSCULOSKELETAL: Tender over bilateral lumbar paraspinal muscles. Tender over sacroiliac region bilaterally. Ambulates normally from bathroom to bed. NEUROLOGICAL: Awake and alert. Normal speech. PSYCHIATRIC: Appropriate mood and affect; insight and judgment normal. Urinary Catheter: No Vascular Central Line Catheter: No A/P Problem List: (1) MRSA (methicillin resistant Staphylococcus aureus) septicemia ICD Code: A41.02 - Sepsis due to Methicillin resistant Staphylococcus aureus Status: Acute (2) Sepsis ICD Code: A41.9 - Sepsis, unspecified organism Status: Acute (3) Endocarditis ICD Code: I38 - Endocarditis, valve unspecified Status: Acute (4) IVDU (intravenous drug user) ICD Code: F19.90 - Other psychoactive substance use, unspecified, uncomplicated Status: Chronic Assessment and Plan 32-year-old white male admitted for sepsis secondary to endocarditis, originally had left AGAINST MEDICAL ADVICE 3 weeks ago at which point he was diagnosed with MRSA endocarditis and bacteremia with a small vegetation on his tricuspid valve. Sepsis: Resolved. Endocarditis/bacteremia: -Echo 08/03 with mild mitral valve regurgitation, mobile echogenic structure in the tricuspid valve consistent with a vegetation, severe tricuspid regurgitation , and mild pulmonary hypertension present (range 40-50 mmHg). EF normal. -02/16 blood cultures 07/31 with MRSA. One aerobic culture with bacillus species. -ID following. Repeat blood cultures negative on 08/02; will need 4-6 weeks of IV antibiotic from this date. Continue Vancomycin. Pharmacy following. -Per ID, patient is super high risk to use PICC line if discharged with it. They recommend rehabilitation or inpatient stay while on antibiotics. Active IV drug abuse. -Avoid opioids. Continue supportive care. Chronic low back pain: -Continue Gabapentin 900 mg 3 times a day. -Continue K thermia -Toradol 15 mg q6h prn for severe pain -Patient requests muscle relaxant (was previously taking Flexeril and Tizanidine ), but hesitate to start any muscle relaxants due to interaction with gabapentin of which patient is on a fairly high dose. Will discuss with patient. Tobacco use: Continue Nicotine patch Insomnia: Improved w/ melatonin. Benadryl as needed. Dyspepsia: Tums, Protonix. Headache: Use Tylenol prn. DVT prophylaxis: SCDs. Discharge Planning Will need to remain hospitalized or go to SNF to complete IV antibiotics. Unsafe to send to home/infusion clinic. Problem Qualifiers (1) Sepsis: Qualified Codes: A41.9 - Sepsis, unspecified organism (2) Endocarditis: Qualified Codes: I33.0 - Acute and subacute infective endocarditis Helena Cueto Aug 05, 2017 11:12
[2017-08-05 12:00] VITALS: BP 110/86; PULSE 80; RESP 20; TEMP 97.7; O2SAT 100
[2017-08-05 16:00] VITALS: BP 126/73; PULSE 76; RESP 20; TEMP 98; O2SAT 100
[2017-08-05 20:00] VITALS: BP 134/89; PULSE 94; RESP 18; TEMP 98.5; O2SAT 99
[2017-08-05] MEDS: diphenhydrAMINE HCL 25 MG CAP PO PRN (20:30)
[2017-08-05] MEDS: MELATONIN 5 MG TAB PO PRN (20:31)
[2017-08-05] MEDS: CALCIUM CARBONATE 500 MG CHEWABLE TAB CHEW PRN (21:37)
[2017-08-06] VITALS: BP_SYST 134; BP_SYST 135; BP_DIAS 89; BP_DIAS 92; PULSE 84; PULSE 94; RESP 16; RESP 18; TEMP 97.8; TEMP 98.5; O2SAT 99
[2017-08-06] MEDS: KETOROLAC TROMETHAMINE 30 MG/ML (IVP) VIAL IV PUSH PRN ×2 (01:04→10:56)
[2017-08-06] MEDS: VANCOMYCIN INJ 1,250 MG in SODIUM CHLOR 0.9% 250 ML INJ 250 ML IV SCH ×2 (03:56→12:00)
[2017-08-06 04:00] VITALS: BP 131/91; PULSE 64; RESP 16; TEMP 97.4; O2SAT 100
[2017-08-06 08:15] VITALS: BP 130/91; PULSE 85; RESP 22; TEMP 97.6; O2SAT 100
[2017-08-06] MEDS: DOCUSATE SODIUM 50 MG/SENNA 8.6 MG TAB PO SCH (08:52)
[2017-08-06] MEDS: GABAPENTIN 300 MG CAP PO SCH ×2 (08:52→12:50)
[2017-08-06] MEDS: NICOTINE 21 MG/24 HR PATCH T-DERMAL SCH (08:52)
[2017-08-06] MEDS: SODIUM CHLORIDE 0.9% FLUSH 10 ML FLUSH IV FLUSH SCH (08:52)
[2017-08-06] MEDS: REMOVE OLD PATCH T-DERMAL SCH (08:52)
--- NOTE | 2017-08-06 10:03 | HHI.PR ---
Subjective Remarks Follow-up for endocarditis. BABY DOCTOR informed me the patient was stumbling around in the rincon earlier. When I walked into the room he is heavily sleeping sitting in the chair at bedside, but arouses easily to voice. He states he did not sleep well last night because he had muscle spasm in his low back. He requests a muscle relaxant at night. When I asked why he was stumbling earlier he states when he initially gets up he has chronic numbness in his left thigh and his left calf gets tight. After my evaluation RN informed me that that a female came to visit the patient and was there only briefly and the patient then was in the bathroom, suspicion for illicit drug use. Objective Vitals Vital Signs Date Time Temp Pulse Resp B/P (MAP) Pulse Ox O2 Delivery O2 Flow Rate FiO2 08/06/17 08:15 97.6 85 22 130/91 (104) 100 08/06/17 04:00 97.4 64 16 131/91 (104) 100 08/06/17 00:00 97.8 84 16 135/92 (106) 99 08/06/17 00:00 98.5 94 18 134/89 (104) 99 08/05/17 20:00 98.5 94 18 134/89 (104) 99 08/05/17 16:00 98.0 76 20 126/73 (90) 100 08/05/17 12:00 97.7 80 20 110/86 (94) 100 I/O 08/05/17 08/05/17 08/05/17 08/06/17 08/06/17 08/06/17 07:00 15:00 23:00 07:00 15:00 23:00 Intake Total 1210 ml 4030 ml 480 ml Output Total 300 ml Balance 1210 ml 4030 ml 180 ml Intake Oral 960 ml 3780 ml 480 ml IV Total 250 ml 250 ml Output Urine Total 300 ml # Voids 4 7 2 # Bowel Movements 1 2 0 Result Diagram: 08/04/17 0930 Objective Remarks GENERAL: Well nourished, well developed patient in no apparent distress sleeping in chair when I enter the room. CARDIOVASCULAR: Regular rate and rhythm. RESPIRATORY: No accessory muscle use. Clear to auscultation. Breath sounds equal bilaterally. MUSCULOSKELETAL: Tender over bilateral lumbar paraspinal muscles. Ambulates in the rincon. NEUROLOGICAL: Arouses to voice. Awake and alert. Normal speech. PSYCHIATRIC: Appropriate mood and affect. Urinary Catheter: No Vascular Central Line Catheter: No A/P Problem List: (1) MRSA (methicillin resistant Staphylococcus aureus) septicemia ICD Code: A41.02 - Sepsis due to Methicillin resistant Staphylococcus aureus Status: Acute (2) Sepsis ICD Code: A41.9 - Sepsis, unspecified organism Status: Acute (3) Endocarditis ICD Code: I38 - Endocarditis, valve unspecified Status: Acute (4) IVDU (intravenous drug user) ICD Code: F19.90 - Other psychoactive substance use, unspecified, uncomplicated Status: Chronic Assessment and Plan 32-year-old white male admitted for sepsis secondary to endocarditis, originally had left AGAINST MEDICAL ADVICE 3 weeks ago at which point he was diagnosed with MRSA endocarditis and bacteremia with a small vegetation on his tricuspid valve. Sepsis: Resolved. Endocarditis/bacteremia: -Echo 08/03 with mild mitral valve regurgitation, mobile echogenic structure in the tricuspid valve consistent with a vegetation, severe tricuspid regurgitation , and mild pulmonary hypertension present (range 40-50 mmHg). EF normal. -02/16 blood cultures 07/31 with MRSA. One aerobic culture with bacillus species. -ID following. Repeat blood cultures negative on 08/02; will need 4-6 weeks of IV antibiotic from this date. Continue Vancomycin. Pharmacy following. -Per ID, patient is super high risk to use PICC line if discharged with it. They recommend rehabilitation or inpatient stay while on antibiotics. Active IV drug abuse. -Avoid opioids. Continue supportive care. -08/06: Suspicion of drug use this morning. Patient not on any prescribed narcotics here in the hospital. UDS ordered. Nurse later called and informed me that patient told her he could not pee, and also asked why we were getting a UDS telling her he is going to show up positive for heroin because he is a drug user. The patient should not be positive for heroin at this time unless he used recently while in the hospital. Nurse anticipates patient may sign out AMA as his IV was out/had come out. No visitors allowed. Chronic low back pain: -Continue Gabapentin 900 mg 3 times a day. -Continue K thermia -Toradol 15 mg q6h prn for severe pain -Patient requests muscle relaxant (was previously taking Flexeril and Tizanidine ), but hesitate to start any muscle relaxants due to interaction with gabapentin of which patient is on a fairly high dose. -08/06: Was willing to start Norflex at night, but due to suspicion of active illicit opiate use, will not be starting any muscle relaxants. Tobacco use: Continue Nicotine patch Insomnia: Improved w/ melatonin. Benadryl as needed. Dyspepsia: Tums, Protonix. Headache: Use Tylenol prn. DVT prophylaxis: SCDs. Discharge Planning Will need to remain hospitalized or go to SNF to complete IV antibiotics. Unsafe to send to home/infusion clinic. Problem Qualifiers (1) Sepsis: Qualified Codes: A41.9 - Sepsis, unspecified organism (2) Endocarditis: Qualified Codes: I33.0 - Acute and subacute infective endocarditis Helena Cueto Aug 06, 2017 10:03
[2017-08-06 13:20] VITALS: BP 125/92; PULSE 89; RESP 16; TEMP 98; O2SAT 99
--- NOTE | 2017-08-07 16:32 | HHI.DS ---
Discharge Summary Admission Date Jul 31, 2017 at 08:42 Discharge Date: Aug 06, 2017 (was not discharged; patient ELOPED) Admitting Diagnosis endocarditis, sepsis, IVDA (1) Sepsis ICD Code: A41.9 - Sepsis, unspecified organism Diagnosis: Principal Status: Acute (2) MRSA (methicillin resistant Staphylococcus aureus) septicemia ICD Code: A41.02 - Sepsis due to Methicillin resistant Staphylococcus aureus Diagnosis: Principal Status: Acute (3) Endocarditis ICD Code: I38 - Endocarditis, valve unspecified Diagnosis: Principal Status: Acute (4) IVDU (intravenous drug user) ICD Code: F19.90 - Other psychoactive substance use, unspecified, uncomplicated Diagnosis: Principal Status: Chronic (5) Chronic low back pain ICD Code: M54.5 - Low back pain; G89.29 - Other chronic pain Diagnosis: Principal Procedures None Brief History - From Admission This is a 32 year-old male with past medical history of IV drug abuse and endocarditis who is known to me from previous hospitalization. The patient was hospitalized 3 weeks ago and at that time was diagnosed with MRSA endocarditis and bacteremia with 2-D echocardiogram showing a tricuspid valve vegetation. At that time he left AGAINST MEDICAL ADVICE after only 2 days in the hospital. The patient returns now with night sweats and fevers. He is complaining of a severe pulsating headache which is worse with cough. No visual changes. No weakness or paresthesias. The patient is also complaining of chronic low back pain. The patient is requesting that we "meet him senior living" and give him opioids. Currently has blood pressures running quite low. He did receive clindamycin and has received a dose of vancomycin and Azactam as well as a 2 L fluid bolus. Lactic acid level 1.6. The patient admits to ongoing active IV drug use. CBC/BMP: 08/04/17 0930 Imaging Last Impressions Chest X-Ray 07/31/17 0834 Signed Impressions: Service Date/Time: Wednesday, July 31, 2017 08:50 - CONCLUSION: Minimal density at the bases likely related to minimal atelectasis or consolidation. Kenny Zambrano MD PE at Discharge GENERAL: Well nourished, well developed patient in no apparent distress sleeping in chair when I enter the room. CARDIOVASCULAR: Regular rate and rhythm. RESPIRATORY: No accessory muscle use. Clear to auscultation. Breath sounds equal bilaterally. MUSCULOSKELETAL: Tender over bilateral lumbar paraspinal muscles. Ambulates in the rincon. NEUROLOGICAL: Arouses to voice. Awake and alert. Normal speech. PSYCHIATRIC: Appropriate mood and affect. Hospital Course 32-year-old white male admitted for sepsis secondary to endocarditis, originally had left AGAINST MEDICAL ADVICE 3 weeks ago at which point he was diagnosed with MRSA endocarditis and bacteremia with a small vegetation on his tricuspid valve. 02/16 blood cultures 07/31 with MRSA. One aerobic culture with bacillus species. ID evaluated patient. Repeat blood cultures negative on 08/02; will need 4-6 weeks of IV antibiotic from this date. Continue Vancomycin. Per ID , patient is super high risk to use PICC line if discharged with it. They recommend rehabilitation or inpatient stay while on antibiotics. Patient received a dose of Dilaudid when he first came in, but has been off all prescribed narcotics for about 6 days. He has chronic low back pain and has been treated with gabapentin, Toradol, and K-thermia. Patient is an active IV drug user. On morning of 08/06/17 it was reported the patient had stumbling around although he justified this by saying it was due to the numbness in his thigh and left calf tightness as he does have sciatica related to his chronic back pain. The nurse however informed me that a female had visited the patient only briefly and the patient was suspiciously in the bathroom afterward and there was suspicion for illicit drug use. I had ordered a UDS and per the nurse , the patient claimed he couldn't urinate and essentially implied to the nurse that he had injected heroin that morning by telling her that he would show up positive for heroin on the UDS which he shouldn't have unless he did use while in the hospital. PATIENT ELOPED. Pt Condition on Discharge: Stable Discharge Disposition: Discharge Home (WAS NOT DISCHARGED) Discharge Time: <= 30 minutes (was NOT discharged) Helena Cueto Aug 07, 2017 16:32
[2017-08-09] MEDS ORDERED: VANCOMYCIN TROUGH ONE (03:45)
== END 2017-08-06 14:00 | disposition left against medical advice (07) | DRG 871 ==
LOC: PHED 08:23 → PHEDA 08:42 → PHEDH 12:41 → PH5A 16:14
PROVIDERS: ADMIT Family Medicine; ATTEND Family Medicine
DX: A41.02 Sepsis due to Methicillin resistant Staphylococcus aureus (principal); I33.0 Acute and subacute infective endocarditis; F17.210 Nicotine dependence, cigarettes, uncomplicated; G89.29 Other chronic pain; F19.10 Other psychoactive substance abuse, uncomplicated; G47.00 Insomnia, unspecified; I27.2 Other secondary pulmonary hypertension; M54.42 Lumbago with sciatica, left side; R10.13 Epigastric pain; B95.62 Methicillin resistant Staphylococcus aureus infection as the cause of diseases classified elsewhere; R51 Headache; Z91.19 Patient's noncompliance with other medical treatment and regimen; Z88.0 Allergy status to penicillin
CPT/HCPCS: 71010; 80048; 80053; 80202; 81001; 82565; 83605; 85025; 87040; 87186; 87205; 93005; 93308; C9113; J1170; J1885; J2405; J2550; J3370; J7030; J7050